=== PATIENT | female | born 1950 | race Caucasian/White ===

== ENCOUNTER 2021-01-21 05:45 | Inpatient (IN) | payer OTHER ==
[2021-01-16 11:41] LABS: Absolute Lymphocytes (CBC) 2.6 K/uL (0.7-4.9); Hematocrit 47.1 % (36.0-45.0); Lymphocytes % 32.4 % (15.3-44.8); MPV 8.2 fL (7.6-11.3); RBC Red Blood Cell Count 5.07 M/uL (3.86-4.86)
--- NOTE | 2021-01-16 11:54 | RAD REPORT ---
EXAM DESCRIPTION: Mariela Sy (2 Views)01/16/2021 11:27 am CLINICAL HISTORY: Preop for knee replacement surgery COMPARISON: 2011 FINDINGS: Right apical pleural thickening unchanged Bilateral calcified granuloma is unchanged. Lungs appear clear of acute infiltrate. Lungs are mildly to moderately hyperaerated. Heart is normal size IMPRESSION: No acute abnormalities displayed
[2021-01-16 15:20] LABS: Protime INR 0.96
[2021-01-21] MEDS ORDERED: Ringers Lactate 1,000 ML IV ONE ×2 (06:20→08:36)
[2021-01-21] MEDS ORDERED: CEFAZOLIN/SWI 1gm 1 GM/10 ML SYR ONE (06:20)
[2021-01-21] MEDS ORDERED: dexAMETHasone 10 MG/ML VIAL ONE ×2 (06:42→07:52)
[2021-01-21] MEDS ORDERED: LIDOCAINE 2% MPF 5 ML VIAL ONE ×2 (06:42→07:52)
[2021-01-21] MEDS ORDERED: NS 0.9% VIAL 20 ML ONE (06:42)
[2021-01-21] MEDS ORDERED: FENTANYL CITR 100 MCG/2 ML ONE (06:43)
[2021-01-21] MEDS ORDERED: MIDAZOLAM HCL 2 MG/2 ML INJ ONE (06:43)
[2021-01-21] MEDS ORDERED: KETOROLAC 30 MG/ML INJ ONE (07:52)
[2021-01-21] MEDS ORDERED: propofoL 200 MG/20 ML VIAL IV ONE (07:52)
[2021-01-21] MEDS ORDERED: ROCURONIUM 50 MG/5 ML VIAL IV ONE (07:53)
[2021-01-21] MEDS ORDERED: ONDANSETRON 4 MG/2 ML VIAL ONE (07:53)
[2021-01-21] MEDS ORDERED: KETAMINE HCL 500 MG/5 ML VIAL ONE (07:53)
[2021-01-21] MEDS ORDERED: TRANEXAMIC ACID 1,000 MG in NA CHLORIDE 0.9% 50 ML IV SCH (08:00)
[2021-01-21] MEDS ORDERED: ALBUTEROL INHALER 60 PUFF/8 GM IH ONE (10:26)
--- NOTE | 2021-01-21 11:10 | P.BOP ---
Preoperative diagnosis: left knee osteoarthritis Postoperative diagnosis: same Primary procedure: left total knee arthroplasty [employer]: NONE,NONE Estimated blood loss: 20 cc Specimen: left knee bone remnants Findings: see dictation Anesthesia: General Complications: None Drain(s): Urinary catheter Implants: Biomet Faye Persona, 6 STD CR femur, C tibia, 10 mm CR poly, 32 patella Fluids & blood products: per anesthesia record; TT: 109 mins @ 300 mmHg Transferred to: Recovery Room Condition: Good
[2021-01-21] MEDS ORDERED: MORPHINE 2 MG/ML SYR IV PRN (11:41)
[2021-01-21] MEDS ORDERED: TRAMADOL HCL 50 MG TAB PO PRN (11:44)
--- NOTE | 2021-01-21 12:36 | RAD REPORT ---
EXAM DESCRIPTION: RAD - Knee Left 2 View - 01/21/2021 11:37 am CLINICAL HISTORY: Knee surgery FINDINGS: Left knee arthroplasty. The prosthesis is in good position. No fracture or dislocation. No abnormality is displayed
[2021-01-21] MEDS: HYDROCODONE/APAP 7.5/325 MG TAB PO PRN (15:01)
--- OUTSIDE RECORDS SUMMARY | 2021-01-21 15:09 | XMS REPORT | Continuity of Care Document ---
:1950 Author Organization [facility] t Address [address] [place] [address] Care Team Providers Name Role Phone Unavailable Unavailable Unavailable Problems This patient has no known problems. Allergies, Adverse Reactions, Alerts This patient has no known allergies or adverse reactions. Medications Ordered Filled Start Stop Current Ordering Indication Dosage Frequency Signature Comments Components Source Medication Medication Date Date Medication? Clinician (SIG) Name Name Risperidone Risperidone Yes Mario not [facility] atorvastati atorvastati Yes Mario not [facility] Donepezil Donepezil Yes Mario not [facility] Vitamin B6 Vitamin B6 Yes Mario not [facility] Fluoxetine Fluoxetine Yes Mario not [facility] Gabapentin Gabapentin Yes Mario not [facility] Aspir-81 Aspir-81 Yes Mario not [facility] Mirtazapine Mirtazapine Yes Mario not [facility] Propranolol Propranolol Yes Mario not [facility] Amphetamine Amphetamine Yes Mario not [facility] Procedures This patient has no known procedures. Encounters Start End Encounter Admission Attending Care Care Encounter Source Date/Time Date/Time Type Type Clinicians Facility Department ID 2021-01-14 2021-01-14 Outpatient [facility] [id number] [facility] 2021-01-13 2021-01-13 Outpatient [facility] [id number] [facility] 2021-01-09 2021-01-09 Out[facility] [id number] [facility] 2020-12-19 2020-12-19 Outpatient [facility] [id number] [facility] 2020-12-19 2020-12-19 Outpatient [facility] [id number] [facility] 2020-11-26 2020-11-26 Outpatient [facility] [id number] [facility] 2020-11-26 2020-11-26 Out[facility] [id number] [facility] 2020-11-07 2020-11-07 Out[facility] [id number] [facility] 2020-10-14 2020-10-14 Outpatient [facility] [id number] [facility] 2020-08-14 2020-08-14 Out[facility] [id number] [facility] 2020-07-31 2020-07-31 Out[facility] [id number] [facility] 2020-07-24 2020-07-24 Out[facility] [id number] [facility] 2020-07-11 2020-07-11 Outpatient Elzbieta Rico [id number] [facility] 2020-06-24 2020-06-24 Outpatient Elzbieta Rico [id number] [facility] 15[facility]00 15:38:00 [facility] 2020-06-16 2020-06-16 Outpatient Elzbieta Rico [id number] [facility] 08:39[facility]00 08:39:00 [facility] 2020-06-10 2020-06-10 Outpatient Elzbieta Rico [id number] [facility] 13:[facility]00 13:00:00 [facility] Results This patient has no known results.
[2021-01-21 16:46] VITALS: BMI 28.3
[2021-01-21] MEDS: CEFAZOLIN/SWI 1gm 1 GM/10 ML SYR IV SCH (16:55)
--- NOTE | 2021-01-21 19:15 | P.OP ---
Preoperative diagnosis: left knee osteoarthritis Postoperative diagnosis: same Primary procedure: left total knee arthroplasty Anesthesia: general Estimated blood loss: 20 cc Specimen: left knee bone remnants Findings: see dictation Operative Technique: Indication For Procedure: Ms. Cowart is a 70-year-old female who presented to my clinic with signs, symptoms, and x-ray finding consistent with severe degenerative osteoarthritis. The patient failed conservative treatment measures including corticosteroid injection, viscosupplementation injections, oral anti-inflammatories, and a guided home exercise program. I discussed with the patient at length risks, benefits associated with operative and nonoperative treatment, and she expressed understanding and elected to proceed with operative treatment. Description Of Procedure: After informed consent was obtained, the patient was identified in the preoperative holding area. The left lower extremity was marked. The patient underwent an adductor canal block performed by Anesthesia in the recovery room and then was transferred to the operating room. She was transferred to the operating table in supine fashion and placed under general LMA anesthesia. The left lower extremity was then prepped and draped in usual sterile fashion. A time-out was initiated. Correct patient and procedure were confirmed and identified. The patient did receive her preoperative prophylactic antibiotics. The left lower extremity was exsanguinated and the tourniquet inflated to 300 mmHg. Approximately a 15 cm longitudinal incision was made over the anterior aspect of the knee. Dissection was then taken down to the extensor mechanism where a median parapatellar arthrotomy was performed. The patella was everted. Lateral release was performed. Osteophytes were then removed off the patella. Fat pad was removed and the knee was placed in flexion. The medial meniscus, lateral meniscus, and ACL were removed. The fat pad and synovium were removed just proximal to the distal femur and cutting block which had been prepared preoperatively using MRI imaging was then placed over the femur and pins were placed. The distal femoral cutting block was then placed over the pins and distal femur was cut. Bony remnants were removed. Next, a chamfer cutting block was placed over the distal femur where prior pin in place. The setting was locked into position. Anterior-posterior cuts were made as well as the anterior-posterior chamfer cuts. Yeyo wings had been used to ensure proper depth to cuts prior to the cuts being made. Bony remnants were removed. Remaining medial and lateral meniscus were removed and the knee was placed in hyperflexion. Soft tissue was then elevated off the proximal medial aspect of the proximal tibia. The tibial cutting block was then placed into position over the proximal tibia and an alignment génesis was used to ensure proper alignment. Pins were placed. The cutting jig was then placed over the prior plate pins and the proximal tibial was cut. The bony fragments were then removed and felt to be a pretty even and stable cut. A 10 mm spacer was then placed to ensure prope r depth of the cut. It was noted to be a little tight, 2 mm of extra bone set of the proximal tibia. The trial implant including a size 6 CR femur, size C tibial tray, 10 mm poly was then placed. There was good overall stability to the knee and good range of motion with full extension and flexion. Those implants were selected. Next, attention was taken to preparing the patella. A size 32 patella was selected. A patella planer was then used to get to subchondral bone. The patella was drilled. A size 32 patella implant was placed. The knee was place in a range of motion. There was good overall stability to the patella. Tibial tray was marked, and the femoral holes were drilled. A trial femoral implant was removed. A tibial tray was then applied and placed in a proper position, and the tibia was prepared. The knee was then irrigated thoroughly with normal saline using a pulse lavage. A 30 cc of 0.5% Marcaine with epinephrine was then injected in the synovium capsule and pe riosteum. The cement was prepared on the back table. A size C tibial tray was first placed, followed with excess cement removed using [place] elevators, followed by placement of the size 6 CR femur. Again excess cement was removed using a [place] elevator and a 10 mm trial poly was placed. There were good motion and good stability noted. The cement was placed in the underside of the patella and the patella implant was put into position. The knee was held in hyperextension until the cement hardened. The trial poly was then removed and a 10 mm CR E poly was placed, locked in position. The knee was then again irrigated with normal saline. Tourniquet was let down. Hemostasis was achieved using Bovie cautery. The extensor mechanism was closed interrupted running #1 Vicryl. The deep fascia was then approximated using a 0 Vicryl. Subcu tissue was approximated using a 2-0 Vicryl. The skin was approximated using roc. Sterile dressings were placed. The patient was awakened, transferred to PACU in stable condition. Postoperative Plan: She will be weightbearing as tolerated. Physical Therapy will be consulted to aid with mobilization, and she will be admitted to the floor for pain management and medical monitoring. Complications: None Drain(s): Urinary catheter Implants: Biomet Faye Persona Size 6 CR femur, C tibia, 10 mm CR poly, 32 patella Fluids & blood products: per anesthesia record Transferred to: Recovery Room Condition: Good
[2021-01-21] MEDS ORDERED: ATORVASTATIN 20 MG TAB PO SCH (21:00)
[2021-01-21] MEDS: DEXTROAMPHETAMINE PO SCH (21:00)
[2021-01-21] MEDS: AMPHETAMINE PO SCH (21:00)
[2021-01-21] MEDS ORDERED: GABAPENTIN 300 MG CAP PO SCH (21:00)
[2021-01-21] MEDS ORDERED: DONEPEZIL HCL 5 MG TAB PO SCH (21:00)
[2021-01-21] MEDS: RISPERIDONE 0.25 MG TABLET PO SCH (21:34)
[2021-01-21] MEDS: PROPRANOLOL HCL 10 MG TAB PO SCH (21:34)
[2021-01-21] MEDS ORDERED: TEMAZEPAM 15 MG CAP PO PRN (21:42)
[2021-01-21 23:13] VITALS: O2SAT 94
[2021-01-22] MEDS: CEFAZOLIN/SWI 1gm 1 GM/10 ML SYR IV SCH ×2 (01:21→08:55)
[2021-01-22] MEDS ORDERED: ENOXAPARIN 30 MG/0.3 ML SQ SCH (06:00)
[2021-01-22] MEDS: RISPERIDONE 0.25 MG TABLET PO SCH (08:54)
[2021-01-22] MEDS: HYDROCODONE/APAP 7.5/325 MG TAB PO PRN (08:54)
[2021-01-22] MEDS: PROPRANOLOL HCL 10 MG TAB PO SCH (08:55)
[2021-01-22] MEDS: AMPHETAMINE PO SCH (08:55)
[2021-01-22] MEDS: DEXTROAMPHETAMINE PO SCH (08:55)
[2021-01-22] MEDS ORDERED: PARoxetine HCL 10 MG TAB PO SCH (09:00)
[2021-01-22] MEDS ORDERED: PANTOPRAZOLE 40MG TABLET PO SCH (09:00)
[2021-01-22] MEDS ORDERED: HOME MED 1 EA UNK (Omeprazole [Omeprazole] 20 MG Capsule.Dr) PO SCH (09:00)
[2021-01-22] MEDS ORDERED: CELECOXIB 100 MG CAPSULE PO SCH (09:00)
[2021-01-22] MEDS ORDERED: GABAPENTIN 300 MG CAP PO SCH (09:00)
[2021-01-22] MEDS ORDERED: CETIRIZINE HCL 5 MG TABLET PO SCH (09:00)
--- NOTE | 2021-01-22 09:37 | P.DS ---
Admission Date: 01/21/21 Discharge Date: 01/22/21 Disposition: DC HOME/HOME HEALTH CARE Discharge Condition: GOOD Reason for Admission: left knee osteoarthritis s/p left total knee arthroplasty Consultations: None Procedures: left total knee arthroplasty 01/21/21 Brief History of Present Illness: Paula underwent left TKA on 01/21/21 without complication and was admitted to the floor in stable condition. Hospital Course: Admitted to the floor postoperatively without complication with stable vital signs. She was placed on lovenox for DVT prophylaxis and physical therapy was consulted to aid with mobilization. She mobilized well, pain controlled and discharged on 01/22/21 in stable condition. She will begin Xarelto tomorrow for DVT prophylaxis at home and followup in 2 weeks for wound check and reevaluation. Vital Signs/Physical Exam: Temp Pulse Resp BP Pulse Ox 96.9 F 95 H 18 101/62 96 01/22/21 04:00 01/22/21 04:00 01/22/21 04:00 01/22/21 04:00 01/22/21 04:00 Laboratory Data at Discharge: WBC 7.90 K/uL (4.3-10.9) 01/16/21 11:15 Hgb 14.2 g/dL (12.0-15.0) 01/21/21 12:02 Hct 43.0 % (36.0-45.0) 01/21/21 12:02 Plt Count 260 K/uL (152-406) 01/16/21 11:15 PT 11.0 SECONDS (9.5-12.5) 01/16/21 11:13 INR 0.96 01/16/21 11:13 APTT 28.9 SECONDS (24.3-36.9) 01/16/21 11:15 Sodium 138 mmol/L (136-145) 01/16/21 11:13 Potassium 5.0 mmol/L (3.5-5.1) 01/16/21 11:13 BUN 10 mg/dL (7-18) 01/16/21 11:13 Creatinine 0.82 mg/dL (0.55-1.3) 01/16/21 11:13 Glucose 103 mg/dL (74-106) 01/16/21 11:13 Home Medications: Atorvastatin Calcium 20 mg PO BEDTIME 01/16/21 Cetirizine HCl [Zyrtec*] 5 mg PO DAILY 01/16/21 Dextroamphetamine/Amphetamine [Adderall 20 mg Tablet] 20 mg PO BID 01/16/21 Donepezil HCl 10 mg PO BEDTIME 01/16/21 Gabapentin 300 mg PO BID 01/16/21 Gabapentin 900 mg PO BEDTIME 01/16/21 Methocarbamol [Robaxin-750] 750 mg PO Q6H PRN 01/16/21 Omeprazole 20 mg PO DAILY 01/16/21 Propranolol [Inderal*] 10 mg PO BID 01/16/21 Risperidone [Risperdal] 0.5 mg PO BID 01/16/21 Hydrocodone 7.5/APAP 325 [[place] 7.5/325 mg*] 1 tab PO SEECOM PRN 01/21/21 Paroxetine HCl [Paxil] 0.5 tab PO BID 01/21/21 Rivaroxaban [Xarelto*] 1 tab PO DAILY 01/21/21 Temazepam 1 tab PO DAILY PRN 01/21/21 Physician Discharge Instructions: Begin Xarelto tomorrow, Tuesday (01/23/21) in the morning and take once daily. May be WBAT. Work with HHPT. Qamar may removed in 2 weeks on 02/04/21 and steri strips may be placed Diet: Regular Activity: Weight bearing as tolerated Followup: Mario Alejandro MD [ACTIVE - CAN ADMIT] - 1-2 Weeks
[2021-01-22 10:03] VITALS: BP 126/75; TEMP 98.2
== END 2021-01-22 12:04 | disposition home health service (06) | DRG 470 ==
LOC: OR 05:45 → 2ND 11:41
PROVIDERS: ADMIT Orthopaedic Surgery Sports Medicine; ATTEND Orthopaedic Surgery Sports Medicine
PROC: 0SRD0J9 Replacement of Left Knee Joint with Synthetic Substitute, Cemented, Open Approach (ICD-10-PCS; principal; 2021-01-21 07:30)
DX: M17.12 Unilateral primary osteoarthritis, left knee (principal); Z79.899 Other long term (current) drug therapy; Z20.822 Contact with and (suspected) exposure to COVID-19
CPT/HCPCS: 36415; 71046; 80048; 85014; 85018; 85025; 85610; 85730; 88304; 88311; 94010; 97110; 97116; 97139; 97161; 97530; J0690; J1100; J1650; J2250; J2405; J2704; J3010; J7120; U0002

== ENCOUNTER 2023-01-13 14:04 | Emergency (ER) | payer OTHER ==
--- OUTSIDE RECORDS SUMMARY | 2023-01-13 14:10 | XMS REPORT | Continuity of Care Document ---
:1950 Author Organization [facility] t Address [address] [facility] [place] [place] [address] Care Team Providers Name Role Phone Jose Jefferson QUIGLEY Primary Care Physician MARIO LOJA Attending Clinician Unavailable Mario Loja MD Attending Clinician Only, Adc Test Attending Clinician Unavailable Pob, Adc Lab Main Attending Clinician Unavailable Doctor Unassigned, Chal[place] Attending Clinician Unavailable Nurse, Adc Pob Immunization Attending Clinician Unavailable Simeon Moya DO Attending Clinician SIMEON MOYA Attending Clinician Unavailable Edith Marino PT Attending Clinician Unavailable Thuan Barcenas MD Attending Clinician Cathy Comer PTA Attending Clinician Unavailable Rodrigo Comer PTA Attending Clinician Unavailable THUAN BARCENAS Attending Clinician Unavailable Katy Marie PT Attending Clinician Unavailable MARIO LOJA Admitting Clinician Unavailable Mario Loja MD Admitting Clinician Payers Payer Name Policy Type Policy Number Effective Date Ex[facility] Date [id number] HE[facility]CARE 00:00:00 [facility] Care 1 [id number] 2020 Common Medicare 00:00:00 [facility] MEDICARE NOVITAS MB [id number] [facility] MEDICARE NOVITAS MB [id number] [facility] MEDICARE NOVITAS MB [id number] [facility] MEDICARE NOVITAS MB [id number] [facility] Problems Condition Condition Condition Status Onset Resolution Last Treating Co mments Source Name Details Category Date Date Treatment Clinician Date Seizure Seizure Disease Active 2015-10 Univers 10-31 ity of 00:00: [address] [id number] Status Problem Active Commo n 105 post total [place] left knee - [facility] History of Aftercare Problem Active Co mmon musculoske following Spi rit letal joint - [facility] operation [facility] [id number] Arthritis Problem Active Co mmon [id number] of left [place] knee - [facility] [id number] Presence Problem Active Com tue of left [facility] artificial - [facility] knee joint [facility] [id number] Primary Problem Active Comm on osteoarthr [place] itis of - [facility] right knee [facility] [id number] Primary Problem Active Comm on osteoarthr [place] itis of - [facility] left knee [facility] [id number] Primary Problem Active Comm on osteoarthr [place] itis of - [facility] right [facility] Allergies, Adverse Reactions, Alerts Allergy Allergy Status Severity Reaction(s) Onset Inactive Treating Comm ents Source Name Type Date Date Clinician IODINE DRUG Active Swelling 2008-10 Univers INGREDI 11-01 ity of 00:00: [place] [address] Medical [place] Iodine Propensi Active Swelling 2008-10 Univer s ty to 11-01 ity of adverse 00:00: [place] reaction Medical s Branch Social History Social Habit Start Date Stop Date Quantity Comments Source History of Current Smoker Common Spi rit - Tobacco Use [facility] Sex Assigned At Common Sp pawel - [facility] Exposure to 2022-07-16 2022-07-26 Not sure University of SARS-CoV-2 00:00:00 16:50:00 [place] Medical (event) Branch Tobacco use and 2022-07-26 2022-07-26 Smokeless tobacco Un iversity of exposure 00:00:00 00:00:00 non-user [facility] Smoking Status Start Date Stop Date Source Current Smoker 2022-01-28 00:00:00 Common Sp[facility] t - [facility] Ce nter Tobacco smoking consumption [facility] [place] [facility] Branch Medications Ordered Filled Start Stop Current Ordering Indication Dosage Frequency Signature Comments Components Source Medication Medication Date Date Medication? Clinician (SIG) Name Name neomycin-po 2021- No PRN, Univmax rs lymyxin-dex 07-28 Starting ity of amethasone 17:32: 17:34 on Tuea s (MAXITROL) 00 :36 07/28/22 at Med ical 3.5 1232, Branch mg/g-10,000 Until Tue unit/g-0.1 07/28/22 at % 1234, ophthalmic Routine, ointment Intra-op dexamethaso 2021- No PRN, Nani rs ne 07-28 Starting ity of (DECADRON 17:28: 17:34 on Tue PHOSPHATE) 00 :36 07/28/22 at Med ical injection 1228, Branch Until Tue07/28/22 at 1234, Routine, Intra-op ceFAZolin 2021- No PRN, Univers (ANCEF) 07-28 Starting ity of injection 17:28: 17:34 on Tue 00 :36 07/28/22 at Medical 1228, Branch Until Tue07/28/22 at 1234, GREGG, Intra-op carbachoL 2021- No PRN, Univers (MIOSTAT) 07-28 Starting ity o f 0.01 % 17:28: 17:34 on Tue intraocular 00 :36 07/28/22 at Me dical injection 1228, Branch Until Tue07/28/22 at 1234, Routine, Intra-op chondroitin 2021- No PRN, Unive rs sulf-sod 07-28 Starting ity of hyaluronate 17:18: 17:34 on Tue as (DUOVISC 00 :36 07/28/22 at Medic al VISCO 1218, Branch ELASTIC) Until Tue intraocular 07/28/22 at injection 1234, Routine, Intra-op EPINEPHrine 2021- No PRN, Unive rs 1:1,000 (1 07-28 Starting ity of mg/mL) 17:17: 17:34 on Tue (ADRENALIN) 00 :36 07/28/22 at N[place] dical injection 1217, Branch Until Tue07/28/22 at 1234, Routine, Intra-op balanced 2021- No PRN, Univers salt irrig 07-28 Starting ity of soln comb1 17:17: 17:34 on Tue [place] (BSS PLUS) 00 :36 07/28/22 at Med ical ophthalmic 1217, Branch solution Until Tue 500 mL bag 07/28/22 at 1234, Routine, Intra-op water for 2021- No PRN, Univers irrigation 07-28 Starting ity of irrigation 17:10: 17:34 on Tue [place] solution 00 :36 07/28/22 at Medic al 1210, Branch Until Tue07/28/22 at 1234, Routine, Intra-op Hyaluronida 2021- No PRN, Unive rs se, Human 07-28 Starting ity o f Recomb. 17:08: 17:34 on Tue (HYLENEX) 00 :36 07/28/22 at [facility] stan injection 1208, Branch Until Tue07/28/22 at 1234, Routine, Intra-op eye block 2021- No PRN, Univers syringe 11 07-28 Starting ity of mL 17:08: 17:34 on Tue 00 :36 07/28/22 at Medical 1208, Branch Until Tue07/28/22 at 1234, Intra-op sodium 2021- No PRN, Univers chloride 07-28 Starting ity of (NS) 17:00: 17:34 on Tue [place] injection 00 :36 07/28/22 at Medi stan 1200, Branch Until Tue07/28/22 at 1234, Routine, Intra-op cyclopent 2021- No .5mL 0.5 mL, Univ ers 1%-tropic 07-28 Right Eye, ity of 1%-phenyl 15:45: 16:03 ONCE, 1 [place] 2.5%-ketor 00 :00 dose, On Medic al 0.5% Tue Branch (MYDRIATIC 07/28/22 at #5) 1045, ophthalmic Routine, solution DSU Pre-op syringe 0.5 mL lactated 2021- No 1000mL at 42 [facility] [place] [facility] rs ringers IV 07-28 mL/hr, ity of infusion 15:45: 16:03 1,000 mL, [place] 1,000 mL 00 :00 IV Medical Infusion, Branch ONCE, 1 dose, On Tue07/28/22 at 1045, Routine, DSU Pre-op cyclopent 2021- No .5mL 0.5 mL, Univ ers 1%-tropic 07-28 Right Eye, ity of 1%-phenyl 15:45: 16:03 ONCE, 1 [place] 2.5%-ketor 00 :00 dose, On Medic al 0.5% Tue Branch (MYDRIATIC 07/28/22 at #5) 1045, ophthalmic Routine, solution DSU Pre-op syringe 0.5 mL lactated 2021- No 1000mL at 42 [facility] [place] [facility] rs ringers IV 07-28 mL/hr, ity of infusion 15:45: 16:03 1,000 mL, [place] 1,000 mL 00 :00 IV Medical Infusion, Branch ONCE, 1 dose, On Tue07/28/22 at 1045, Routine, DSU Pre-op GABAPENTIN, Yes Univer s BULK, MISC 07-28 ity of 13:00: [address] Branch QUETIAPINE Yes Take by [facility] [place] [facility] ers FUMARATE 07-28 mouth. ity of (QUETIAPINE 13:00: [place] ORAL) Medical Branch methocarbam Yes 750mg Take 750 U nivers ol 07-28 mg by ity of (ROBAXIN) 13:00: mouth 4 [place] 750 mg 45 (four) Medical tablet times Branch daily. FLUoxetine Yes 40mg Take 40 mg U nivers (PROZAC) 40 07-28 by mouth ity of mg capsule 13:00: daily. [address] omeprazole Yes 40mg Take 40 mg U nivers (PRILOSEC) 07-28 by mouth ity o f 40 mg 13:00: daily. [facility] 45 Medical Branch GABAPENTIN, 0 Yes Univer s BULK, MISC 07-28 ity of 13:00: [place] [address] Medical Branch QUETIAPINE 0 Yes Take by Univ ers FUMARATE 07-28 mouth. ity of (QUETIAPINE 13:00: [place] ORAL) 45 Medical Branch methocarbam 0 Yes 750mg Take 750 U nivers ol 9-28 mg by ity of (ROBAXIN) 13:00: mouth 4 [place] 750 mg 45 (four) Medical tablet times Branch daily. FLUoxetine 0 Yes 40mg Take 40 mg U nivers (PROZAC) 40 - by mouth ity of mg capsule 13:00: daily. [place] [address] Medical Branch omeprazole 0 Yes 40mg Take 40 mg U nivers (PRILOSEC) -28 by mouth ity o f 40 mg 13:00: daily. [facility] 45 Medical Branch donepeziL 0 Yes 10mg Take 10 mg Un patricia 10 mg 9-16 by mouth ity of tablet 00:00: in the 00 morning. Medical Branch ergocalcife 0 Yes 1{capsu Take 1 U nivers rol, 9-16 le} capsule by ity of vitamin d2, 00:00: mouth [place] 1,250 mcg 00 weekly. On Medi stan (Tuesday Branch unit) capsule donepeziL 0 Yes 10mg Take 10 mg Un patricia 10 mg 9-16 by mouth ity of tablet 00:00: in the 00 morning. Medical Branch ergocalcife 0 Yes 1{capsu Take 1 U nivers rol, 9-16 le} capsule by ity of vitamin d2, 00:00: mouth [place] 1,250 mcg 00 weekly. On Medi stan ([address] Tuesday Branch unit) capsule traZODone 0 Yes 1{tbl} Take 1 Univ ers 100 mg 9-12 tablet by ity of tablet 00:00: mouth in [place] 00 the Medical morning. Branch traZODone 2021-0 Yes 1{tbl} Take 1 Univ ers 100 mg 9-12 tablet by ity of tablet 00:00: mouth in [place] 00 the Medical morning. Branch dextroamphe 0 Yes 1{tbl} Take 1 Un patricia tamine-amph 9-07 tablet by ity of etamine 20 00:00: mouth in [place] mg tablet 00 the Medical morning Branch and 1 tablet in the evening. risperiDONE 2-0 Yes .5mg Take 0.5 Un patricia 0.5 mg 9-07 mg by ity of tablet 00:00: mouth in [place] 00 the Medical morning Branch and 0.5 mg in the evening. dextroamphe 2-0 Yes 1{tbl} Take 1 Un patricia tamine-amph 9-07 tablet by ity of etamine 20 00:00: mouth in [place] mg tablet 00 the Medical morning Branch and 1 tablet in the evening. risperiDONE 2-0 Yes .5mg Take 0.5 Un patricia 0.5 mg 9-07 mg by ity of tablet 00:00: mouth in [place] 00 the Medical morning Branch and 0.5 mg in the evening. PARoxetine 2-0 Yes 30mg Take 30 mg U nivers 30 mg 8-17 by mouth ity of tablet 00:00: in the [place] morning. Medical Branch PARoxetine 2-0 Yes 30mg Take 30 mg U nivers 30 mg 8-17 by mouth ity of tablet 00:00: in the [place] 00 morning. Medical Branch atorvastati 2021-0 Yes 20mg Take 20 mg Univers n 20 mg 8-12 by mouth ity of tablet 00:00: in the [place] 00 morning. Medical Branch atorvastati 2-0 Yes 20mg Take 20 mg Univers n 20 mg 8-12 by mouth ity of tablet 00:00: in the [place] 00 morning. Medical Branch propranoloL 2-0 Yes 40mg Take 40 mg Univers 40 mg 8-11 by mouth ity of tablet 00:00: in the [place] 00 morning. Medical Branch propranoloL 2022-0 Yes 40mg Take 40 mg Univers 40 mg 8-11 by mouth ity of tablet 00:00: in the [place] 00 morning. Medical Branch Bupivicaine Bupivicaine 2020-0 No Common [place] 9-16 Spirit 00:00: - [facility] 00 [facility] Kenalog Kenalog 2020-0 No 40mg Common (Triamcinol (Triamcinol 9-16 S pirit one) one) 00:00: - [facility] Kenalog Kenalog No 40mg Common (Triamcinol (Triamcinol 2-19 S pirit one) one) 00:00: - [facility]I 00 [facility] Bupivicaine Bupivicaine 0 No Common [place] 2-19 Spirit 00:00: - CHI 00 [facility] Kenalog Kenalog 2019-10 No 40mg Common (Triamcinol (Triamcinol 0-15 S pirit one) one) 00:00: - CHI 00 [facility] Bupivicaine Bupivicaine 2019- No 5mg Common [place] 0-15 Spirit 00:00: - [facility]I 00 [facility] Orthovisc Orthovisc 2019-1 No 15mg Com mon 0 Spirit 00:00: - [facility] Orthovisc Orthovisc 2019-1 No 15mg Com mon 0 Spirit 00:00: - [facility] Orthovisc Orthovisc 2020-0 No 15mg Com mon 07-24 Spirit 00:00: - [facility] Orthovisc Orthovisc 2020-0 No 15mg Com mon 07-24 Spirit 00:00: - [facility]I 00 [facility] Bupivicaine Bupivicaine 2019-0 No 5mg Common [place] 9- Spirit 00:00: - CHI 00 [facility] Orthovisc Orthovisc 2020-0 No 15mg Com mon 07-11 Spirit 00:00: - [facility] Orthovisc Orthovisc 2020-0 No 15mg Com 07-11 Spirit 00:00: - [facility] Kenalog Kenalog 0 No 40mg Common (Triamcinol (Triamcinol 9-11 S pirit one) one) 00:00: - [facility] 00 [facility] proMETHazin 2015-10 Yes 25mg Take 1 Univ ers e 1-04 tablet by ity of (PHENERGAN) 00:00: mouth [place] 25 mg 00 every 6 Medical tablet (six) Branch hours as needed for N/V unresponsi ve to Ondansetro n. lisinopril 2015-10 Yes 2.5mg Take 1 Univ ers (PRINIVIL,Z 1-04 tablet by ity of ESTRIL) 2.5 00:00: mouth [place] mg tablet 00 daily. Medical Branch proMETHazin 2015-10 Yes 25mg Take 1 Univ ers e 1-04 tablet by ity of (PHENERGAN) 00:00: mouth [place] 25 mg 00 every 6 Medical tablet (six) Branch hours as needed for N/V unresponsi ve to Ondansetro n. lisinopril 2015-10 Yes 2.5mg Take 1 Univ ers (PRINIVIL,Z 1-04 tablet by ity of ESTRIL) 2.5 00:00: mouth [place] mg tablet 00 daily. Medical Branch proMETHazin 2015-10 Yes 25mg Take 1 Univ ers e 1-04 tablet by ity of (PHENERGAN) 00:00: mouth [place] 25 mg 00 every 6 Medical tablet (six) Branch hours as needed for N/V unresponsi ve to Ondansetro n. lisinopril 2015-10 Yes 2.5mg Take 1 Univ ers (PRINIVIL,Z 1-04 tablet by ity of ESTRIL) 2.5 00:00: mouth [place] mg tablet 00 daily. Medical Branch proMETHazin 2015-10 Yes 25mg Take 1 Univ ers e 1-04 tablet by ity of (PHENERGAN) 00:00: mouth [place] 25 mg 00 every 6 Medical tablet (six) Branch hours as needed for N/V unresponsi ve to Ondansetro n. lisinopril 2015-10 Yes 2.5mg Take 1 Univ ers (PRINIVIL,Z 1-04 tablet by ity of ESTRIL) 2.5 00:00: mouth [place] mg tablet 00 daily. Medical Branch proMETHazin 2015-10 Yes 25mg Take 1 Univ ers e 1-04 tablet by ity of (PHENERGAN) 00:00: mouth [place] 25 mg 00 every 6 Medical tablet (six) Branch hours as needed for N/V unresponsi ve to Ondansetro n. lisinopril 2015-10 Yes 2.5mg Take 1 Univ ers (PRINIVIL,Z 1-04 tablet by ity of ESTRIL) 2.5 00:00: mouth [place] mg tablet 00 daily. Medical Branch proMETHazin 2015-10 Yes 25mg Take 1 Univ ers e 1-04 tablet by ity of (PHENERGAN) 00:00: mouth [place] 25 mg 00 every 6 Medical tablet (six) Branch hours as needed for N/V unresponsi ve to Ondansetro n. lisinopril 2015-10 Yes 2.5mg Take 1 Univ ers (PRINIVIL,Z 1-04 tablet by ity of ESTRIL) 2.5 00:00: mouth [place] mg tablet 00 daily. Medical Branch proMETHazin 2015-10 Yes 25mg Take 1 Univ ers e 1-04 tablet by ity of (PHENERGAN) 00:00: mouth [place] 25 mg 00 every 6 Medical tablet (six) Branch hours as needed for N/V unresponsi ve to Ondansetro n. lisinopril 2015-10 Yes 2.5mg Take 1 Univ ers (PRINIVIL,Z 1-04 tablet by ity of ESTRIL) 2.5 00:00: mouth [place] mg tablet 00 daily. Medical Branch proMETHazin 2015-10 Yes 25mg Take 1 Univ ers e 1-04 tablet by ity of (PHENERGAN) 00:00: mouth [place] 25 mg 00 every 6 Medical tablet (six) Branch hours as needed for N/V unresponsi ve to Ondansetro n. lisinopril 2015-10 Yes 2.5mg Take 1 Univ ers (PRINIVIL,Z 1-04 tablet by ity of ESTRIL) 2.5 00:00: mouth [place] mg tablet 00 daily. Medical Branch proMETHazin 2015-10 Yes 25mg Take 1 Univ ers e 1-04 tablet by ity of (PHENERGAN) 00:00: mouth [place] 25 mg 00 every 6 Medical tablet (six) Branch hours as needed for N/V unresponsi ve to Ondansetro n. lisinopril 2015-10 Yes 2.5mg Take 1 Univ ers (PRINIVIL,Z 1-04 tablet by ity of ESTRIL) 2.5 00:00: mouth [place] mg tablet 00 daily. Medical Branch proMETHazin 2015-10 Yes 25mg Take 1 Univ ers e 1-04 tablet by ity of (PHENERGAN) 00:00: mouth [place] 25 mg 00 every 6 Medical tablet (six) Branch hours as needed for N/V unresponsi ve to Ondansetro n. lisinopril 2015-10 Yes 2.5mg Take 1 Univ ers (PRINIVIL,Z 1-04 tablet by ity of ESTRIL) 2.5 00:00: mouth [place] mg tablet 00 daily. Medical Branch proMETHazin 2015-10 Yes 25mg Take 1 Univ ers e 1-04 tablet by ity of (PHENERGAN) 00:00: mouth [place] 25 mg 00 every 6 Medical tablet (six) Branch hours as needed for N/V unresponsi ve to Ondansetro n. lisinopril 2015-10 Yes 2.5mg Take 1 Univ ers (PRINIVIL,Z 1-04 tablet by ity of ESTRIL) 2.5 00:00: mouth [place] mg tablet 00 daily. Medical Branch proMETHazin 2015-10 Yes 25mg Take 1 Univ ers e 1-04 tablet by ity of (PHENERGAN) 00:00: mouth [place] 25 mg 00 every 6 Medical tablet (six) Branch hours as needed for N/V unresponsi ve to Ondansetro n. lisinopril 2015-10 Yes 2.5mg Take 1 Univ ers (PRINIVIL,Z 1-04 tablet by ity of ESTRIL) 2.5 00:00: mouth [place] mg tablet 00 daily. Medical Branch proMETHazin 2015-10 Yes 25mg Take 1 Univ ers e 1-04 tablet by ity of (PHENERGAN) 00:00: mouth [place] 25 mg 00 every 6 Medical tablet (six) Branch hours as needed for N/V unresponsi ve to Ondansetro n. lisinopril 2015-10 Yes 2.5mg Take 1 Univ ers (PRINIVIL,Z 1-04 tablet by ity of ESTRIL) 2.5 00:00: mouth [place] mg tablet 00 daily. Medical Branch proMETHazin 2015-10 Yes 25mg Take 1 Univ ers e 1-04 tablet by ity of (PHENERGAN) 00:00: mouth [place] 25 mg 00 every 6 Medical tablet (six) Branch hours as needed for N/V unresponsi ve to Ondansetro n. lisinopril 2015-10 Yes 2.5mg Take 1 Univ ers (PRINIVIL,Z 1-04 tablet by ity of ESTRIL) 2.5 00:00: mouth [place] mg tablet 00 daily. Medical Branch proMETHazin 2015-10 Yes 25mg Take 1 Univ ers e 1-04 tablet by ity of (PHENERGAN) 00:00: mouth [place] 25 mg 00 every 6 Medical tablet (six) Branch hours as needed for N/V unresponsi ve to Ondansetro n. lisinopril 2015-10 Yes 2.5mg Take 1 Univ ers (PRINIVIL,Z 1-04 tablet by ity of ESTRIL) 2.5 00:00: mouth [place] mg tablet 00 daily. Medical Branch GABAPENTIN, 2015-10 Yes Univer s BULK, MISC 10-31 ity of 22:57: [address] Branch QUETIAPINE 2015-10 Yes Take by Univ ers FUMARATE - mouth. ity of (QUETIAPINE 22:57: [place] ORAL) Medical Branch methocarbam 2015-10 Yes 750mg Take 750 U nivers ol 1-01 mg by ity of (ROBAXIN) 22:57: mouth 4 [place] 750 mg 53 (four) Medical tablet times Branch daily. FLUoxetine 2015-10 Yes 40mg Take 40 mg U nivers (PROZAC) 40 10-31 by mouth ity of mg capsule 22:57: daily. [address] omeprazole 2015-10 Yes 40mg Take 40 mg U nivers (PRILOSEC) 10-31 by mouth ity o f 40 mg 22:57: daily. [place] [address] Medical Branch GABAPENTIN, 2015-10 Yes Univer s BULK, MISC 10-31 ity of 22:57: [address] QUETIAPINE 2015-10 Yes Take by Univ ers FUMARATE 10-31 mouth. ity of (QUETIAPINE 22:57: [place] ORAL) [address] [place] [address] methocarbam 2015-10 Yes 750mg Take 750 U nivers ol 1-01 mg by ity of (ROBAXIN) 22:57: mouth 4 [place] 750 mg 53 (four) Medical tablet times Branch daily. FLUoxetine 2015-10 Yes 40mg Take 40 mg U nivers (PROZAC) 40 10-31 by mouth ity of mg capsule 22:57: daily. [address] omeprazole 2015-10 Yes 40mg Take 40 mg U nivers (PRILOSEC) 1-01 by mouth ity o f 40 mg 22:57: daily. [place] [address] Medical Branch GABAPENTIN, 2015-10 Yes Univer s BULK, MISC 10-31 ity of 22:57: [address] QUETIAPINE 2015-10 Yes Take by Univ ers FUMARATE - mouth. ity of (QUETIAPINE 22:57: [place] ORAL) [address] [place] [address] methocarbam 2015-10 Yes 750mg Take 750 U nivers ol 1-01 mg by ity of (ROBAXIN) 22:57: mouth 4 [place] 750 mg 53 (four) Medical tablet times Branch daily. FLUoxetine 2015-10 Yes 40mg Take 40 mg U nivers (PROZAC) 40 1-01 by mouth ity of mg capsule 22:57: daily. [address] omeprazole 2015-10 Yes 40mg Take 40 mg U nivers (PRILOSEC) 1-01 by mouth ity o f 40 mg 22:57: daily. [address] Branch GABAPENTIN, 2015-10 Yes Univer s BULK, MISC 10-31 ity of 22:57: [address] QUETIAPINE 2015-10 Yes Take by [facility] [place] [facility] ers FUMARATE 1-01 mouth. ity of (QUETIAPINE 22:57: [place] ORAL) [address] [place] [address] methocarbam 2015-10 Yes 750mg Take 750 U nivers ol 1-01 mg by ity of (ROBAXIN) 22:57: mouth 4 [place] 750 mg 53 (four) Medical tablet times [place] daily. FLUoxetine 2015-10 Yes 40mg Take 40 mg U nivers (PROZAC) 40 1-01 by mouth ity of mg capsule 22:57: daily. [address] omeprazole 2015-10 Yes 40mg Take 40 mg U nivers (PRILOSEC) 1-01 by mouth ity o f 40 mg 22:57: daily. [address] GABAPENTIN, 2015-10 Yes Univer s BULK, MISC 10-31 ity of 22:57: [address] QUETIAPINE 2015-10 Yes Take by [facility] [place] [facility] ers FUMARATE 1-01 mouth. ity of (QUETIAPINE 22:57: [place] ORAL) [address] [place] [address] methocarbam 2015-10 Yes 750mg Take 750 U nivers ol 1-01 mg by ity of (ROBAXIN) 22:57: mouth 4 [place] 750 mg 53 (four) Medical tablet times Branch daily. FLUoxetine 2015-10 Yes 40mg Take 40 mg U nivers (PROZAC) 40 1-01 by mouth ity of mg capsule 22:57: daily. [address] omeprazole 2015-10 Yes 40mg Take 40 mg U nivers (PRILOSEC) 1-01 by mouth ity o f 40 mg 22:57: daily. [place] [address] Medical Branch GABAPENTIN, 2015-10 Yes Univer s BULK, MISC 10-31 ity of 22:57: [address] Branch QUETIAPINE 2015-10 Yes Take by Univ ers FUMARATE - mouth. ity of (QUETIAPINE 22:57: [place] ORAL) [address] [place] [address] methocarbam 2015-10 Yes 750mg Take 750 U nivers ol 1-01 mg by ity of (ROBAXIN) 22:57: mouth 4 [place] 750 mg 53 (four) Medical tablet times Branch daily. FLUoxetine 2015-10 Yes 40mg Take 40 mg U nivers (PROZAC) 40 -01 by mouth ity of mg capsule 22:57: daily. [place] [address] Medical Branch omeprazole 2015-10 Yes 40mg Take 40 mg U nivers (PRILOSEC) -01 by mouth ity o f 40 mg 22:57: daily. [place] [address] Medical Branch GABAPENTIN, 2015-10 Yes Univer s BULK, MISC 10-31 ity of 22:57: [address] QUETIAPINE 2015-10 Yes Take by Univ ers FUMARATE - mouth. ity of (QUETIAPINE 22:57: [place] ORAL) [address] [place] [address] methocarbam 2015-10 Yes 750mg Take 750 U nivers ol 1-01 mg by ity of (ROBAXIN) 22:57: mouth 4 [place] 750 mg 53 (four) Medical tablet times Branch daily. FLUoxetine 2015-10 Yes 40mg Take 40 mg U nivers (PROZAC) 40 01 by mouth ity of mg capsule 22:57: daily. [address] omeprazole 2015-10 Yes 40mg Take 40 mg U nivers (PRILOSEC) 1-01 by mouth ity o f 40 mg 22:57: daily. [place] [address] Medical Branch GABAPENTIN, 2015-10 Yes Univer s BULK, MISC 10-31 ity of 22:57: [address] Branch QUETIAPINE 2015-10 Yes Take by Univ ers FUMARATE -01 mouth. ity of (QUETIAPINE 22:57: [place] ORAL) Medical [place] methocarbam 2015-10 Yes 750mg Take 750 U nivers ol 1-01 mg by ity of (ROBAXIN) 22:57: mouth 4 [place] 750 mg 53 (four) Medical tablet times Branch daily. FLUoxetine 2015-10 Yes 40mg Take 40 mg U nivers (PROZAC) 40 - by mouth ity of mg capsule 22:57: daily. [address] omeprazole 2015-10 Yes 40mg Take 40 mg U nivers (PRILOSEC) 1-01 by mouth ity o f 40 mg 22:57: daily. [place] [address] Medical Branch GABAPENTIN, 2015-10 Yes Univer s BULK, MISC 10-31 ity of 17:57: [address] QUETIAPINE 2015-10 Yes Take by Univ ers FUMARATE 1- mouth. ity of (QUETIAPINE 17:57: [place] ORAL) [address] [place] [address] methocarbam 2015-10 Yes 750mg Take 750 U nivers ol 1-01 mg by ity of (ROBAXIN) 17:57: mouth 4 [place] 750 mg 53 (four) Medical tablet times [place] daily. FLUoxetine 2015-10 Yes 40mg Take 40 mg U nivers (PROZAC) 40 10-31 by mouth ity of mg capsule 17:57: daily. [address] omeprazole 2015-10 Yes 40mg Take 40 mg U nivers (PRILOSEC) 1 by mouth ity o f 40 mg 17:57: daily. [address] GABAPENTIN, 2015-10 Yes Univer s BULK, MISC 10-31 ity of 17:57: [address] QUETIAPINE 2015-10 Yes Take by Univ ers FUMARATE 10-31 mouth. ity of (QUETIAPINE 17:57: [place] ORAL) [address] [place] [address] methocarbam 2015-10 Yes 750mg Take 750 U nivers ol 1-01 mg by ity of (ROBAXIN) 17:57: mouth 4 [place] 750 mg 53 (four) Medical tablet times [place] daily. FLUoxetine 2015-10 Yes 40mg Take 40 mg U nivers (PROZAC) 40 1-01 by mouth ity of mg capsule 17:57: daily. [address] omeprazole 2015-10 Yes 40mg Take 40 mg U nivers (PRILOSEC) 1-01 by mouth ity o f 40 mg 17:57: daily. [address] Branch GABAPENTIN, 2015-10 Yes Univer s BULK, MISC 10-31 ity of 17:57: [address] QUETIAPINE 2015-10 Yes Take by Univ ers FUMARATE 1-01 mouth. ity of (QUETIAPINE 17:57: [place] ORAL) Medical [place] methocarbam 2015-10 Yes 750mg Take 750 U nivers ol 1-01 mg by ity of (ROBAXIN) 17:57: mouth 4 [place] 750 mg 53 (four) Medical tablet times Branch daily. FLUoxetine 2015-10 Yes 40mg Take 40 mg U nivers (PROZAC) 40 1-01 by mouth ity of mg capsule 17:57: daily. [address] omeprazole 2015-10 Yes 40mg Take 40 mg U nivers (PRILOSEC) 1-01 by mouth ity o f 40 mg 17:57: daily. [place] [address] Medical Branch GABAPENTIN, 2015-10 Yes Univer s BULK, MISC 10-31 ity of 17:57: [address] QUETIAPINE 2015-10 Yes Take by Univ ers FUMARATE 1-01 mouth. ity of (QUETIAPINE 17:57: [place] ORAL) [address] [place] [address] methocarbam 2015-10 Yes 750mg Take 750 U nivers ol 1-01 mg by ity of (ROBAXIN) 17:57: mouth 4 [place] 750 mg 53 (four) Medical tablet times [place] daily. FLUoxetine 2015-10 Yes 40mg Take 40 mg U nivers (PROZAC) 40 1-01 by mouth ity of mg capsule 17:57: daily. [address] omeprazole 2015-10 Yes 40mg Take 40 mg U nivers (PRILOSEC) 1-01 by mouth ity o f 40 mg 17:57: daily. [address] GABAPENTIN, 2015-10 Yes Univer s BULK, MISC 10-31 ity of 17:57: [address] QUETIAPINE 2015-10 Yes Take by Univ ers FUMARATE 1-01 mouth. ity of (QUETIAPINE 17:57: [place] ORAL) [address] [place] [address] methocarbam 2015-10 Yes 750mg Take 750 U nivers ol 1-01 mg by ity of (ROBAXIN) 17:57: mouth 4 [place] 750 mg 53 (four) Medical tablet times Branch daily. FLUoxetine 2015-10 Yes 40mg Take 40 mg U nivers (PROZAC) 40 1-01 by mouth ity of mg capsule 17:57: daily. [address] omeprazole 2015-10 Yes 40mg Take 40 mg U nivers (PRILOSEC) 1-01 by mouth ity o f 40 mg 17:57: daily. [facility] 53 Medical Branch ondansetron 2015-10 Yes 8mg Take 1 Univ ers (ZOFRAN 0-30 tablet by ity of ODT) 8 mg 00:00: mouth [place] disintegrat 00 every 8 Medic al ing tablet (eight) Branch hours as needed for Nausea and Vomiting (N/V). ondansetron 2015-10 Yes 8mg Take 1 Univ ers (ZOFRAN 0-30 tablet by ity of ODT) 8 mg 00:00: mouth [place] disintegrat 00 every 8 Medic al ing tablet (eight) Branch hours as needed for Nausea and Vomiting (N/V). ondansetron 2015-10 Yes 8mg Take 1 Univ ers (ZOFRAN 0-30 tablet by ity of ODT) 8 mg 00:00: mouth [place] disintegrat 00 every 8 Medic al ing tablet (eight) Branch hours as needed for Nausea and Vomiting (N/V). ondansetron 2015-10 Yes 8mg Take 1 Univ ers (ZOFRAN 0-30 tablet by ity of ODT) 8 mg 00:00: mouth [place] disintegrat 00 every 8 Medic al ing tablet (eight) Branch hours as needed for Nausea and Vomiting (N/V). ondansetron 2015-10 Yes 8mg Take 1 Univ ers (ZOFRAN 0-30 tablet by ity of ODT) 8 mg 00:00: mouth [place] disintegrat 00 every 8 Medic al ing tablet (eight) Branch hours as needed for Nausea and Vomiting (N/V). ondansetron 2015-10 Yes 8mg Take 1 Univ ers (ZOFRAN 0-30 tablet by ity of ODT) 8 mg 00:00: mouth [place] disintegrat 00 every 8 Medic al ing tablet (eight) Branch hours as needed for Nausea and Vomiting (N/V). ondansetron 2015-10 Yes 8mg Take 1 Univ ers (ZOFRAN 0-30 tablet by ity of ODT) 8 mg 00:00: mouth [place] disintegrat 00 every 8 Medic al ing tablet (eight) Branch hours as needed for Nausea and Vomiting (N/V). ondansetron 2015-10 Yes 8mg Take 1 Univ ers (ZOFRAN 0-30 tablet by ity of ODT) 8 mg 00:00: mouth [place] disintegrat 00 every 8 Medic al ing tablet (eight) Branch hours as needed for Nausea and Vomiting (N/V). ondansetron 2015-10 Yes 8mg Take 1 Univ ers (ZOFRAN 0-30 tablet by ity of ODT) 8 mg 00:00: mouth [place] disintegrat 00 every 8 Medic al ing tablet (eight) Branch hours as needed for Nausea and Vomiting (N/V). ondansetron 2015-10 Yes 8mg Take 1 Univ ers (ZOFRAN 0-30 tablet by ity of ODT) 8 mg 00:00: mouth [place] disintegrat 00 every 8 Medic al ing tablet (eight) Branch hours as needed for Nausea and Vomiting (N/V). ondansetron 2015-10 Yes 8mg Take 1 Univ ers (ZOFRAN 0-30 tablet by ity of ODT) 8 mg 00:00: mouth [place] disintegrat 00 every 8 Medic al ing tablet (eight) Branch hours as needed for Nausea and Vomiting (N/V). ondansetron 2015-10 Yes 8mg Take 1 Univ ers (ZOFRAN 0-30 tablet by ity of ODT) 8 mg 00:00: mouth [place] disintegrat 00 every 8 Medic al ing tablet (eight) Branch hours as needed for Nausea and Vomiting (N/V). ondansetron 2015-10 Yes 8mg Take 1 Univ ers (ZOFRAN 0-30 tablet by ity of ODT) 8 mg 00:00: mouth [place] disintegrat 00 every 8 Medic al ing tablet (eight) Branch hours as needed for Nausea and Vomiting (N/V). ondansetron 2015-10 Yes 8mg Take 1 Univ ers (ZOFRAN 0-30 tablet by ity of ODT) 8 mg 00:00: mouth [place] disintegrat 00 every 8 Medic al ing tablet (eight) Branch hours as needed for Nausea and Vomiting (N/V). ondansetron 2015-10 Yes 8mg Take 1 Univ ers (ZOFRAN 0-30 tablet by ity of ODT) 8 mg 00:00: mouth [place] disintegrat 00 every 8 Medic al ing tablet (eight) Branch hours as needed for Nausea and Vomiting (N/V). CONJ 2009- Yes 1 g Univers ESTROGENS 4-15 Vaginal ity of VAG CREAM 00:00: QHS twice [place] as 0.625MG/G 00 a week x 4 Medi stan wks Branch HYDROCODONE 0 Yes 1-2 Tab Uni vers -ACETAMINOP 4-15 Oral ity of HEN 5-325 00:00: Q6HPRN [place] MG ORAL TAB 00 Medical Branch IBUPROFEN 2009-0 Yes 1 Tab Oral Un patricia 600 MG ORAL 4-15 Q6H ity of TAB 00:00: [place] 00 Medical Branch PHENERGAN 2009-0 Yes 1/2 to 1 Univ ers 25 MG ORAL 4-15 tab PO q4h ity of TAB 00:00: PRN [place] 00 nausea/vom Medical itting Branch CONJ Yes 1 g Univers ESTROGENS 4-15 Vaginal ity of VAG CREAM 00:00: QHS twice [place] as 0.625MG/G 00 a week x 4 [facility] HYDROCODONE Yes 1-2 Tab Uni vers -ACETAMINOP 4-15 Oral ity of HEN 5-325 00:00: Q6HPRN [place] MG ORAL TAB 00 Medical Branch IBUPROFEN 0 Yes 1 Tab Oral Un patricia 600 MG ORAL 4-15 Q6H ity of TAB 00:00: [place] [facility] PHENERGAN 0 Yes 1/2 to 1 Univ ers 25 MG ORAL 4-15 tab PO q4h ity of TAB 00:00: PRN [place] 00 nausea/vom Medical itting Branch CONJ Yes 1 g Univers ESTROGENS 4-15 Vaginal ity of VAG CREAM 00:00: QHS twice [place] as 0.625MG/G 00 a week x 4 [facility] HYDROCODONE Yes 1-2 Tab Uni vers -ACETAMINOP 4-15 Oral ity of HEN 5-325 00:00: Q6HPRN [place] MG ORAL TAB 00 Medical Branch IBUPROFEN 2009-0 Yes 1 Tab Oral Un patricia 600 MG ORAL 4-15 Q6H ity of TAB 00:00: [place] 00 Medical Branch PHENERGAN 2009-0 Yes 1/2 to 1 Univ ers 25 MG ORAL 4-15 tab PO q4h ity of TAB 00:00: PRN [place] 00 nausea/vom Medical itting Branch CONJ Yes 1 g Univers ESTROGENS 4-15 Vaginal ity of VAG CREAM 00:00: QHS twice [place] as 0.625MG/G 00 a week x 4 [facility] Branch HYDROCODONE 0 Yes 1-2 Tab Uni vers -ACETAMINOP 4-15 Oral ity of HEN 5-325 00:00: Q6HPRN [place] MG ORAL TAB 00 Medical Branch IBUPROFEN 2009-0 Yes 1 Tab Oral Un patricia 600 MG ORAL 4-15 Q6H ity of TAB 00:00: [place] [facility] PHENERGAN 2009-0 Yes 1/2 to 1 Univ ers 25 MG ORAL 4-15 tab PO q4h ity of TAB 00:00: PRN nausea/vom Medical itting Branch CONJ 2009-0 Yes 1 g Univers ESTROGENS 4-15 Vaginal ity of VAG CREAM 00:00: QHS twice [place] as 0.625MG/G 00 a week x 4 [facility] Branch HYDROCODONE Yes 1-2 Tab Uni vers -ACETAMINOP 4-15 Oral ity of HEN 5-325 00:00: Q6HPRN [place] MG ORAL TAB 00 Medical Branch IBUPROFEN 0 Yes 1 Tab Oral Un patricia 600 MG ORAL 4-15 Q6H ity of TAB 00:00: [place] [facility] PHENERGAN 0 Yes 1/2 to 1 Univ ers 25 MG ORAL 4-15 tab PO q4h ity of TAB 00:00: PRN 00 nausea/vom Medical itting Branch CONJ 0 Yes 1 g Univers ESTROGENS 4-15 Vaginal ity of VAG CREAM 00:00: QHS twice [place] as 0.625MG/G 00 a week x 4 [facility] Branch HYDROCODONE 0 Yes 1-2 Tab Uni vers -ACETAMINOP 4-15 Oral ity of HEN 5-325 00:00: Q6HPRN [place] MG ORAL TAB 00 Medical Branch IBUPROFEN 2009-0 Yes 1 Tab Oral Un patricia 600 MG ORAL 4-15 Q6H ity of TAB 00:00: [place] 00 Medical Branch PHENERGAN 2009-0 Yes 1/2 to 1 Univ ers 25 MG ORAL 4-15 tab PO q4h ity of TAB 00:00: PRN [place] 00 nausea/vom Medical itting Branch CONJ 0 Yes 1 g Univers ESTROGENS 4-15 Vaginal ity of VAG CREAM 00:00: QHS twice [place] as 0.625MG/G 00 a week x 4 [facility] Branch HYDROCODONE 0 Yes 1-2 Tab Uni vers -ACETAMINOP 4-15 Oral ity of HEN 5-325 00:00: Q6HPRN [place] MG ORAL TAB 00 Medical Branch IBUPROFEN 2009-0 Yes 1 Tab Oral Un patricia 600 MG ORAL 4-15 Q6H ity of TAB 00:00: [place] 00 Medical Branch PHENERGAN 2009-0 Yes 1/2 to 1 Univ ers 25 MG ORAL 4-15 tab PO q4h ity of TAB 00:00: PRN [place] 00 nausea/vom Medical itting Branch CONJ 2009-0 Yes 1 g Univers ESTROGENS 4-15 Vaginal ity of VAG CREAM 00:00: QHS twice [place] as 0.625MG/G 00 a week x 4 [facility] Branch HYDROCODONE 0 Yes 1-2 Tab Uni vers -ACETAMINOP 4-15 Oral ity of HEN 5-325 00:00: Q6HPRN [place] MG ORAL TAB 00 Medical Branch IBUPROFEN 0 Yes 1 Tab Oral Un patricia 600 MG ORAL 4-15 Q6H ity of TAB 00:00: [place] 00 Medical Branch PHENERGAN 0 Yes 1/2 to 1 Univ ers 25 MG ORAL 4-15 tab PO q4h ity of TAB 00:00: PRN [place] 00 nausea/vom Medical itting Branch CONJ 0 Yes 1 g Univers ESTROGENS 4-15 Vaginal ity of VAG CREAM 00:00: QHS twice [place] as 0.625MG/G 00 a week x 4 [facility] HYDROCODONE 0 Yes 1-2 Tab Uni vers -ACETAMINOP 4-15 Oral ity of HEN 5-325 00:00: Q6HPRN [place] MG ORAL TAB 00 Medical Branch IBUPROFEN 2009-0 Yes 1 Tab Oral Un patricia 600 MG ORAL 4-15 Q6H ity of TAB 00:00: [place] 00 Medical Branch PHENERGAN 2009-0 Yes 1/2 to 1 Univ ers 25 MG ORAL 4-15 tab PO q4h ity of TAB 00:00: PRN [place] 00 nausea/vom Medical itting Branch CONJ 2009-0 Yes 1 g Univers ESTROGENS 4-15 Vaginal ity of VAG CREAM 00:00: QHS twice [place] as 0.625MG/G 00 a week x 4 [facility] Branch HYDROCODONE 0 Yes 1-2 Tab Uni vers -ACETAMINOP 4-15 Oral ity of HEN 5-325 00:00: Q6HPRN [place] MG ORAL TAB 00 Medical Branch IBUPROFEN Yes 1 Tab Oral Un patricia 600 MG ORAL 4-15 Q6H ity of TAB 00:00: [place] [facility] PHENERGAN 2009-0 Yes 1/2 to 1 Univ ers 25 MG ORAL 4-15 tab PO q4h ity of TAB 00:00: PRN [place] nausea/vom Medical itting Branch CONJ Yes 1 g Univers ESTROGENS 4-15 Vaginal ity of VAG CREAM 00:00: QHS twice [place] as 0.625MG/G 00 a week x 4 [facility] Branch HYDROCODONE Yes 1-2 Tab Uni vers -ACETAMINOP 4-15 Oral ity of HEN 5-325 00:00: Q6HPRN [place] MG ORAL TAB Medical Branch IBUPROFEN Yes 1 Tab Oral Un patricia 600 MG ORAL 4-15 Q6H ity of TAB 00:00: [place] [facility] PHENERGAN Yes 1/2 to 1 Univ ers 25 MG ORAL 4-15 tab PO q4h ity of TAB 00:00: PRN 00 nausea/vom Medical itting Branch CONJ Yes 1 g Univers ESTROGENS 4-15 Vaginal ity of VAG CREAM 00:00: QHS twice [place] as 0.625MG/G 00 a week x 4 [facility] Branch HYDROCODONE Yes 1-2 Tab Uni vers -ACETAMINOP 4-15 Oral ity of HEN 5-325 00:00: Q6HPRN [place] MG ORAL TAB 00 Medical Branch IBUPROFEN Yes 1 Tab Oral Un patricia 600 MG ORAL 4-15 Q6H ity of TAB 00:00: [place] [facility] PHENERGAN 0 Yes 1/2 to 1 Univ ers 25 MG ORAL 4-15 tab PO q4h ity of TAB 00:00: PRN [place] 00 nausea/vom Medical itting Branch CONJ Yes 1 g Univers ESTROGENS 4-15 Vaginal ity of VAG CREAM 00:00: QHS twice [place] as 0.625MG/G 00 a week x 4 [facility] Branch HYDROCODONE Yes 1-2 Tab Uni vers -ACETAMINOP 4-15 Oral ity of HEN 5-325 00:00: Q6HPRN [place] MG ORAL TAB 00 Medical Branch IBUPROFEN 0 Yes 1 Tab Oral Un patricia 600 MG ORAL 4-15 Q6H ity of TAB 00:00: [place] 00 Medical Branch PHENERGAN Yes 1/2 to 1 Univ ers 25 MG ORAL 4-15 tab PO q4h ity of TAB 00:00: PRN [place] nausea/vom Medical itting Branch CONJ Yes 1 g Univers ESTROGENS 4-15 Vaginal ity of VAG CREAM 00:00: QHS twice [place] as 0.625MG/G 00 a week x 4 [facility] Branch HYDROCODONE Yes 1-2 Tab Uni vers -ACETAMINOP 4-15 Oral ity of HEN 5-325 00:00: Q6HPRN [place] MG ORAL TAB 00 Medical Branch IBUPROFEN Yes 1 Tab Oral Un patricia 600 MG ORAL 4-15 Q6H ity of TAB 00:00: [place] [facility] Branch PHENERGAN Yes 1/2 to 1 Univ ers 25 MG ORAL 4-15 tab PO q4h ity of TAB 00:00: PRN nausea/vom Medical itting Branch CONJ Yes 1 g Univers ESTROGENS 4-15 Vaginal ity of VAG CREAM 00:00: QHS twice [place] as 0.625MG/G 00 a week x 4 [facility] Branch HYDROCODONE Yes 1-2 Tab Uni vers -ACETAMINOP 4-15 Oral ity of HEN 5-325 00:00: Q6HPRN [place] MG ORAL TAB 00 Medical Branch IBUPROFEN 0 Yes 1 Tab Oral Un patricia 600 MG ORAL 4-15 Q6H ity of TAB 00:00: [place] [facility] Branch PHENERGAN Yes 1/2 to 1 Univ ers 25 MG ORAL 4-15 tab PO q4h ity of TAB 00:00: PRN 00 nausea/vom Medical itting Branch Mirtazapine Mirtazapine No Mirtazapin e atorvastati atorvastati No atorvastat n n in Atorvastati Atorvastati No Atorvastat n Calcium n Calcium in Calcium Eszopiclone Eszopiclone No Eszopiclon e Donepezil Donepezil No Donepezil HCl HCl HCl traZODone traZODone No traZODone HCl HCl HCl HYDROcodone HYDROcodone No HYDROcodon -Acetaminop -Acetaminop e-Acetamin hen hen ophen Omeprazole Omeprazole No QD Omeprazole 10 MG 10 MG 10 MG Aspir-81 Aspir-81 No Aspir-81 ZyrTEC ZyrTEC No 1{table QD ZyrTEC Allergy 10 Allergy 10 t} Allergy 10 MG MG MG Amphetamine Amphetamine No Amphetamin -Dextroamph -Dextroamph e-Dextroam etamine etamine phetamine risperiDONE risperiDONE No risperiDON E Methocarbam Methocarbam No Methocarba ol ol mol PARoxetine PARoxetine No PARoxetine HCl HCl HCl Mirtazapine Mirtazapine No Mirtazapin e Benztropine Benztropine No Benztropin Mesylate Mesylate e Mesylate Vitamin B6 Vitamin B6 No Vitamin B6 atorvastati atorvastati No atorvastat n n in Temazepam Temazepam No Temazepam FLUoxetine FLUoxetine No FLUoxetine HCl HCl HCl QUEtiapine QUEtiapine No QUEtiapine Fumarate Fumarate Fumarate Propranolol Propranolol No Propranolo HCl HCl l HCl Fluoxetine Fluoxetine No Fluoxetine Gabapentin Gabapentin No Gabapentin Propranolol Propranolol No Propranolo HCl HCl l HCl Benztropine Benztropine No Benztropin Mesylate Mesylate e Mesylate Vitamin B6 Vitamin B6 No Vitamin B6 Methocarbam Methocarbam No Methocarba ol ol mol Donepezil Donepezil No Donepezil HCl HCl HCl Amphetamine Amphetamine No Amphetamin -Dextroamph -Dextroamph e-Dextroam etamine etamine phetamine QUEtiapine QUEtiapine No QUEtiapine Fumarate Fumarate Fumarate Omeprazole Omeprazole No QD Omeprazole 10 MG 10 MG 10 MG ZyrTEC ZyrTEC No 1{table QD ZyrTEC Allergy 10 Allergy 10 t} Allergy 10 MG MG MG Temazepam Temazepam No Temazepam HYDROcodone HYDROcodone No HYDROcodon -Acetaminop -Acetaminop e-Acetamin hen hen ophen Eszopiclone Eszopiclone No Eszopiclon e risperiDONE risperiDONE No risperiDON E FLUoxetine FLUoxetine No FLUoxetine HCl HCl HCl Mirtazapine Mirtazapine No Mirtazapin e Atorvastati Atorvastati No Atorvastat n Calcium n Calcium in Calcium Aspir-81 Aspir-81 No Aspir-81 atorvastati atorvastati No atorvastat n n in Fluoxetine Fluoxetine No Fluoxetine traZODone traZODone No traZODone HCl HCl HCl Gabapentin Gabapentin No Gabapentin PARoxetine PARoxetine No PARoxetine HCl HCl HCl risperiDONE risperiDONE No risperiDON E ZyrTEC ZyrTEC No 1{table QD ZyrTEC Allergy 10 Allergy 10 t} Allergy 10 MG MG MG Methocarbam Methocarbam No Methocarba ol ol mol Propranolol Propranolol No Propranolo HCl HCl l HCl traZODone traZODone No traZODone HCl HCl HCl Aspir-81 Aspir-81 No Aspir-81 Eszopiclone Eszopiclone No Eszopiclon e Vitamin B6 Vitamin B6 No Vitamin B6 QUEtiapine QUEtiapine No QUEtiapine Fumarate Fumarate Fumarate Atorvastati Atorvastati No Atorvastat n Calcium n Calcium in Calcium Temazepam Temazepam No Temazepam atorvastati atorvastati No atorvastat n n in FLUoxetine FLUoxetine No FLUoxetine HCl HCl HCl Fluoxetine Fluoxetine No Fluoxetine Omeprazole Omeprazole No QD Omeprazole 10 MG 10 MG 10 MG Donepezil Donepezil No Donepezil HCl HCl HCl Mirtazapine Mirtazapine No Mirtazapin e Gabapentin Gabapentin No Gabapentin Benztropine Benztropine No Benztropin Mesylate Mesylate e Mesylate PARoxetine PARoxetine No PARoxetine HCl HCl HCl HYDROcodone HYDROcodone No HYDROcodon -Acetaminop -Acetaminop e-Acetamin hen hen [place]hen Amphetamine Amphetamine No Amphetamin -Dextroamph -Dextroamph e-Dextroam etamine etamine phetamine Donepezil Donepezil No Donepezil HCl HCl HCl Vitamin B6 Vitamin B6 No Vitamin B6 Fluoxetine Fluoxetine No Fluoxetine Risperidone Risperidone No Risperidon e Propranolol Propranolol No Propranolo HCl HCl l HCl Temazepam Temazepam No Temazepam Mirtazapine Mirtazapine No Mirtazapin e Paroxetine Paroxetine No Paroxetine HCl HCl HCl Benztropine Benztropine No Benztropin Mesylate Mesylate e Mesylate Methocarbam Methocarbam No Methocarba ol ol mol Omeprazole Omeprazole No QD Omeprazole 10 MG 10 MG 10 MG Amphetamine Amphetamine No Amphetamin -Dextroamph -Dextroamph e-Dextroam etamine etamine phetamine Fluoxetine Fluoxetine No Fluoxetine HCl HCl HCl Eszopiclone Eszopiclone No Eszopiclon e Quetiapine Quetiapine No Quetiapine Fumarate Fumarate Fumarate Gabapentin Gabapentin No Gabapentin atorvastati atorvastati No atorvastat n n in Atorvastati Atorvastati No Atorvastat n Calcium n Calcium in Calcium Aspir-81 Aspir-81 No Aspir-81 Zyrtec Zyrtec No 1{table QD Zyrtec Allergy 10 Allergy 10 t} Allergy 10 MG MG MG Risperidone Risperidone No Risperidon e Fluoxetine Fluoxetine No Fluoxetine Amphetamine Amphetamine No Amphetamin -Dextroamph -Dextroamph e-Dextroam etamine etamine phetamine Gabapentin Gabapentin No Gabapentin Zyrtec Zyrtec No 1{table QD Zyrtec Allergy 10 Allergy 10 t} Allergy 10 MG MG MG Propranolol Propranolol No Propranolo HCl HCl l HCl Omeprazole Omeprazole No QD Omeprazole 10 MG 10 MG 10 MG Vitamin B6 Vitamin B6 No Vitamin B6 Fluoxetine Fluoxetine No Fluoxetine HCl HCl HCl Benztropine Benztropine No Benztropin Mesylate Mesylate e Mesylate Paroxetine Paroxetine No Paroxetine HCl HCl HCl Atorvastati Atorvastati No Atorvastat n Calcium n Calcium in Calcium Quetiapine Quetiapine No Quetiapine Fumarate Fumarate Fumarate Methocarbam Methocarbam No Methocarba ol ol mol Donepezil Donepezil No Donepezil HCl HCl HCl Risperidone Risperidone Yes Mario not Common Ale[place]andro defined [facility] atorvastati atorvastati Yes Mario not Common n n [place]andro defined [facility] Donepezil Donepezil Yes Mario not Co mmon HCl HCl Alejandro defined [facility] Vitamin B6 Vitamin B6 Yes Mario not Common Ale[place] defined Spirit [facility] Fluoxetine Fluoxetine Yes Mario not Common Alejandro defined [facility] Gabapentin Gabapentin Yes Mario not Common Ale[place]andro defined Spirit [facility] Aspir-81 Aspir-81 Yes Mario not Comm on Alejanrdo defined Spirit [facility] Mirtazapine Mirtazapine Yes Mario not Common Alejandro defined Spirit [facility] Propranolol Propranolol Yes Mario not Common HCl HCl Alejandro defined [facility] Amphetamine Amphetamine Yes Mario not Common -Dextroamph -Dextroamph Alejandro defined Spirit etamine etamine - [facility] Temazepam Temazepam No Temazepam Eszopiclone Eszopiclone No Eszopiclon e Aspir-81 Aspir-81 No Aspir-81 Immunizations Ordered Filled Immunization Date Status Comments [facility] e Immunization Name Name SARS-COV-2 COVID-19 2021-10-09 Completed Unive rsity of PFIZER VACCINE 00:00:00 [facility] SARS-COV-2 COVID-19 2021-10-09 Completed Unive rsity of PFIZER VACCINE 00:00:00 [facility] SARS-COV-2 COVID-19 2021-10-09 Completed Unive rsity of PFIZER VACCINE 00:00:00 [facility] SARS-COV-2 COVID-19 2021-10-09 Completed Unive rsity of PFIZER VACCINE 00:00:00 [facility] SARS-COV-2 COVID-19 2021-10-09 Completed Unive rsity of PFIZER VACCINE 00:00:00 [facility] SARS-COV-2 COVID-19 2021-10-09 Completed Unive rsity of PFIZER VACCINE 00:00:00 [facility] SARS-COV-2 COVID-19 2021-10-09 Completed Unive rsity of PFIZER VACCINE 00:00:00 [facility] Bupivicaine [place] Bupivicaine [place] 2021-07-16 Completed [facility] - 13:49:00 [facility] Kenalog Kenalog 2021-07-16 Completed [facility] - (Triamcinolone) (Triamcinolone) 13:48:00 [facility] SARS-COV-2 COVID-19 2021-01-12 Completed Unive rsity of PFIZER VACCINE 00:00:00 [facility] SARS-COV-2 COVID-19 2021-01-12 Completed Unive rsity of PFIZER VACCINE 00:00:00 [facility] SARS-COV-2 COVID-19 2021-01-12 Completed Unive rsity of PFIZER VACCINE 00:00:00 [facility] SARS-COV-2 COVID-19 2021-01-12 Completed Unive rsity of PFIZER VACCINE 00:00:00 [facility] SARS-COV-2 COVID-19 2021-01-12 Completed Unive rsity of PFIZER VACCINE 00:00:00 [place] [facility] SARS-COV-2 COVID-19 2021-01-12 Completed Unive rsity of PFIZER VACCINE 00:00:00 [facility] Branch SARS-COV-2 COVID-19 2021-01-12 Completed Unive rsity of PFIZER VACCINE 00:00:00 [facility] Branch SARS-COV-2 COVID-19 2021-01-12 Completed Unive rsity of PFIZER VACCINE 00:00:00 [facility] Branch SARS-COV-2 COVID-19 2021-01-12 Completed Unive rsity of PFIZER VACCINE 00:00:00 [facility] Branch SARS-COV-2 COVID-19 2021-01-12 Completed Unive rsity of PFIZER VACCINE 00:00:00 [facility] Branch SARS-COV-2 COVID-19 2021-01-12 Completed Unive rsity of PFIZER VACCINE 00:00:00 [facility] Branch SARS-COV-2 COVID-19 2021-01-12 Completed Unive rsity of PFIZER VACCINE 00:00:00 [facility] Branch SARS-COV-2 COVID-19 2021-01-12 Completed Unive rsity of PFIZER VACCINE 00:00:00 [facility] Branch SARS-COV-2 COVID-19 2021-01-12 Completed Unive rsity of PFIZER VACCINE 00:00:00 [facility] Branch SARS-COV-2 COVID-19 2021-01-12 Completed Unive rsity of PFIZER VACCINE 00:00:00 [facility] Branch SARS-COV-2 COVID-19 2020-12-22 Completed Unive rsity of PFIZER VACCINE 00:00:00 [facility] Branch SARS-COV-2 COVID-19 2020-12-22 Completed Unive rsity of PFIZER VACCINE 00:00:00 [facility] Branch SARS-COV-2 COVID-19 2020-12-22 Completed Unive rsity of PFIZER VACCINE 00:00:00 [facility] Branch SARS-COV-2 COVID-19 2020-12-22 Completed Unive rsity of PFIZER VACCINE 00:00:00 [facility] Branch SARS-COV-2 COVID-19 2020-12-22 Completed Unive rsity of PFIZER VACCINE 00:00:00 [facility] Branch SARS-COV-2 COVID-19 2020-12-22 Completed Unive rsity of PFIZER VACCINE 00:00:00 [facility] SARS-COV-2 COVID-19 2020-12-22 Completed Unive rsity of PFIZER VACCINE 00:00:00 [facility] SARS-COV-2 COVID-19 2020-12-22 Completed Unive rsity of PFIZER VACCINE 00:00:00 [facility] SARS-COV-2 COVID-19 2020-12-22 Completed Unive rsity of PFIZER VACCINE 00:00:00 [facility] SARS-COV-2 COVID-19 2020-12-22 Completed Unive rsity of PFIZER VACCINE 00:00:00 [facility] SARS-COV-2 COVID-19 2020-12-22 Completed Unive rsity of PFIZER VACCINE 00:00:00 [facility] SARS-COV-2 COVID-19 2020-12-22 Completed Unive rsity of PFIZER VACCINE 00:00:00 [facility] SARS-COV-2 COVID-19 2020-12-22 Completed Unive rsity of PFIZER VACCINE 00:00:00 [facility] SARS-COV-2 COVID-19 2020-12-22 Completed Unive rsity of PFIZER VACCINE 00:00:00 [facility] SARS-COV-2 COVID-19 2020-12-22 Completed Unive rsity of PFIZER VACCINE 00:00:00 [facility] Bupivicaine [place] Bupivicaine [place] 2020-12-19 Completed [facility] - 14:18:00 [facility] Kenalog Kenalog 2020-12-19 Completed [facility] - (Triamcinolone) (Triamcinolone) 14:18:00 [facility] Bupivicaine [place] Bupivicaine [place] 2020-12-19 Completed [facility] - 14:18:00 [facility] Kenalog Kenalog 2020-12-19 Completed [facility] - (Triamcinolone) (Triamcinolone) 14:18:00 [facility] Bupivicaine [place] Bupivicaine [place] 2020-12-19 Completed [facility] - 14:18:00 [facility] Kenalog Kenalog 2020-12-19 Completed [facility] - (Triamcinolone) (Triamcinolone) 14:18:00 [facility] Bupivicaine [place] Bupivicaine [place] 2020-12-19 Completed Common [facility] - 14:18:00 [facility] Kenalog Kenalog 2020-12-19 Completed [facility] - (Triamcinolone) (Triamcinolone) 14:18:00 [facility] Bupivicaine Douglas Bupivicaine Douglas 2020-08-14 Completed [facility] - 11:39:00 [facility] Bupivicaine Douglas Bupivicaine Douglas 2020-08-14 Completed [facility] - 11:39:00 [facility] Bupivicaine Douglas Bupivicaine Douglas 2020-08-14 Completed [facility] - 11:39:00 [facility] Bupivicaine Douglas Bupivicaine Douglas 2020-08-14 Completed [facility] - 11:39:00 [facility] Kenanamaria Kenalog 2020-08-14 Completed [facility] (Triamcinolone) (Triamcinolone) 11:38:00 [facility] Kenanamaria Kenalog 2020-08-14 Completed [facility] (Triamcinolone) (Triamcinolone) 11:38:00 [facility] Kenanamaria Kenalog 2020-08-14 Completed [facility] (Triamcinolone) (Triamcinolone) 11:38:00 [facility] Kenalog Kenalog 2020-08-14 Completed [facility] (Triamcinolone) (Triamcinolone) 11:38:00 [facility] Orthovisc Orthovisc 2020-07-31 Completed [facility] - 14:46:00 [facility] Orthovisc Orthovisc 2020-07-31 Completed [facility] - 14:46:00 [facility] Orthovisc Orthovisc 2020-07-31 Completed [facility] - 14:46:00 [facility] Orthovisc Orthovisc 2020-07-31 Completed [facility] - 14:46:00 [facility] Orthovisc Orthovisc 2020-07-31 Completed [facility] - 14:45:00 [facility] Orthovisc Orthovisc 2020-07-31 Completed [facility] - 14:45:00 [facility] Orthovisc Orthovisc 2020-07-31 Completed [facility] - 14:45:00 [facility] Orthovisc Orthovisc 2020-07-31 Completed [facility] - 14:45:00 [facility] Orthovisc Orthovisc 2020-07-24 Completed [facility] - 09:48:00 [facility] Orthovisc Orthovisc 2020-07-24 Completed [facility] - 09:48:00 [facility] Orthovisc Orthovisc 2020-07-24 Completed [facility] - 09:48:00 [facility] Orthovisc Orthovisc 2020-07-24 Completed [facility] - 09:48:00 [facility] Orthovisc Orthovisc 2020-07-24 Completed [facility] - 09:46:00 [facility] Orthovisc Orthovisc 2020-07-24 Completed [facility] - 09:46:00 [facility] Orthovisc Orthovisc 2020-07-24 Completed [facility] - 09:46:00 [facility] Orthovisc Orthovisc 2020-07-24 Completed [facility] - 09:46:00 [facility] Bupivicaine Douglas Bupivicaine Douglas 2020-07-11 Completed [facility] - 09:47:00 [facility] Bupivicaine Douglas Bupivicaine Douglas 2020-07-11 Completed [facility] - 09:47:00 [facility] Bupivicaine Douglas Bupivicaine Douglas 2020-07-11 Completed [facility] - 09:47:00 [facility] Bupivicaine Douglas Bupivicaine Douglas 2020-07-11 Completed [facility] - 09:47:00 [facility] Kenalog Kenalog 2020-07-11 Completed [facility] (Triamcinolone) (Triamcinolone) 09:45:00 [facility] Kenalog Kenalog 2020-07-11 Completed [facility] (Triamcinolone) (Triamcinolone) 09:45:00 [facility] Kenalog Kenalog 2020-07-11 Completed [facility] (Triamcinolone) (Triamcinolone) 09:45:00 [facility] Kenalog Kenalog 2020-07-11 Completed [facility] (Triamcinolone) (Triamcinolone) 09:45:00 [facility] Orthovisc Orthovisc 2020-07-11 Completed [facility] - 09:44:00 [facility] Orthovisc Orthovisc 2020-07-11 Completed [facility] - 09:44:00 [facility] Orthovisc Orthovisc 2020-07-11 Completed [facility] - 09:44:00 [facility] Orthovisc Orthovisc 2020-07-11 Completed [facility] - 09:44:00 [facility] Orthovisc Orthovisc 2020-07-11 Completed [facility] - 09:43:00 [facility] Orthovisc Orthovisc 2020-07-11 Completed [facility] - 09:43:00 [facility] Orthovisc Orthovisc 2020-07-11 Completed [facility] - 09:43:00 [facility] Orthovisc Orthovisc 2020-07-11 Completed [facility] - 09:43:00 [facility] Vital Signs Vital Name Observation Time Observation Value Comments Source Systolic blood 2022-07-28 17:51:00 138 mm[Hg] Univer [facility] Diastolic blood 2022-07-28 17:51:00 87 mm[Hg] Unive rs[facility] Heart rate 2022-07-28 17:51:00 86 /min [facility] Respiratory rate 2022-07-28 17:51:00 23 /min [facility] Oxygen saturation in 2022-07-28 17:51:00 95 /min [facility] Arterial blood by [facility] Pulse oximetry Branch Body temperature 2022-07-28 17:35:00 36.22 [facility] Body height 2022-07-27 14:10:[address] [facility] Body weight 2022-07-27 14:10:[address] [facility] BMI 2022-07-27 14:10:00 26.93 kg/m2 [facility] Systolic blood 2022-07-28 15:49:00 146 mm[Hg] [facility]iver [facility] Diastolic blood 2022-07-28 15:49:00 100 mm[Hg] Unive rsity of pressure [facility] Body temperature 2022-07-28 15:47:00 36.72 [facility] 2022-07-28 15:45:00 89 /min [facility] Respiratory rate 2022-07-28 15:45:00 20 /[facility] O[facility] in 2022-07-28 15:45:00 95 /min [facility] Arterial blood by [facility] Pulse oximetry Branch Body height 2022-07-27 14:10:00 162.6 cm [facility] Body weight 2022-07-27 14:10:[address] [facility] BMI 2022-07-27 14:10:00 26.93 kg/m2 [facility] height 2022-01-28 11:00:00 62.5 [in_i] [facility] weight 2022-01-28 11:00:00 155 [lb_av] [facility] temperature 2022-01-28 11:00:00 97.3 [degF] [facility] bmi 2022-01-28 11:00:00 27.9 kg/m2 [facility] blood pressure 2022-01-28 11:00:00 118 mm[Hg] [facility] systolic [facility] blood pressure 2022-01-28 11:00:00 72 mm[Hg] [facility] diastolic [facility] height 2021-07-16 13:00:00 62.5 [in_i] [facility] weight 2021-07-16 13:00:00 164 [lb_av] [facility] bmi 2021-07-16 13:00:00 29.51 kg/m2 [facility] blood pressure 2021-07-16 13:00:00 144 mm[Hg] [facility] systolic [facility] blood pressure 2021-07-16 13:00:00 86 mm[Hg] [facility] diastolic [facility] height 2021-04-16 13:30:00 62.5 [in_i] [facility] weight 2021-04-16 13:30:00 164 [lb_av] [facility] temperature 2021-04-16 13:30:00 97.3 [degF] [facility] bmi 2021-04-16 13:30:00 29.51 kg/m2 [facility] blood pressure 2021-04-16 13:30:00 124 mm[Hg] [facility] - systolic [facility] blood pressure 2021-04-16 13:30:00 72 mm[Hg] [facility] diastolic [facility] height 2021-03-12 11:00:00 62.5 [in_i] [facility] weight 2021-03-12 11:00:00 164.3 [lb_av] [facility] bmi 2021-03-12 11:00:00 29.57 kg/m2 [facility] blood pressure 2021-03-12 11:00:00 124 mm[Hg] [facility] - systolic [facility] blood pressure 2021-03-12 11:00:00 84 mm[Hg] [facility] diastolic [facility] height 2021-02-09 10:00:00 62.5 [in_i] [facility] weight 2021-02-09 10:00:00 167 [lb_av] [facility] bmi 2021-02-09 10:00:00 30.05 kg/m2 [facility] blood pressure 2021-02-09 10:00:00 132 mm[Hg] [facility] - systolic [facility] blood pressure 2021-02-09 10:00:00 82 mm[Hg] [facility] diastolic [facility] Procedures Procedure Date / Time Performing Source Performed Clinician PHACOEMULSIFICATION OF 2022-07-28 Mario Loja [facility] CATARACT WITH INTRAOCULAR 16:55:00 Medica l Branch LENS IMPLANT ASSIGNMENT OF BENEFITS 2022-07-23 Doctor Unassigned, [facility] 17:39:21 [facility] SARS-COV-2 COVID-19 2021-10-09 Doctor Unassigned, [facility] VACCINE,0.3ML,IM (PFIZER) 17:11:36 [facility] ASSIGNMENT OF BENEFITS 2021-02-26 Doctor Unassigned, [facility] 18:05:55 [facility] Encounters Start End Encounter Admission Attending Care Care Encounter Source Date/Time Date/Time Type Type Clinicians Facility Department ID 2022-01-28 Outpatient STLMLC STLMLC [id number] Common 11:30:01 [facility] 2022-01-11 Outpatient STLMLC STLMLC [id number] Common 08:36:01 [facility] 2021-11-25 Outpatient STLMLC STLMLC [id number] Common 13:03:19 [id number] [facility] 2021-11-25 Outpatient STLMLC STLMLC [id number] Common 12:59:06 [id number] [facility] 2021-11-25 Outpatient STLMLC STLMLC [id number] Common 12:56:04 [id number] [facility] 2021-11-25 Outpatient STLMLC STLMLC [id number] Common 12:51:08 [id number] [facility] 2021-11-25 Outpatient STLMLC STLMLC [id number] Common 12:46:19 [id number] [facility] 2021-11-25 Outpatient STLMLC STLMLC [id number] Common 12:41:06 [id number] [facility] 2021-11-25 Outpatient STLMLC STLMLC [id number] Common 12:30:56 [id number] [facility] 2021-11-25 Outpatient STLMLC STLMLC [id number] Common 11:50:28 [id number] [facility] 2021-11-25 Outpatient STLMLC STLMLC [id number] Common 11:46:33 [id number] [facility] 2021-11-25 Outpatient STLC STLC [id number] Common 11:38:05 [id number] [facility] 2021-11-25 Outpatient STLMLC STLMLC [id number] Common 11:36:49 [id number] [facility] 2022-07-28 2022-07-28 Outpatient R PURVI [facility] OPH [id number] Univers 10:44:00 12:59:00 MARIO anna [facility] 2022-07-28 2022-07-28 Hospital [facility] [id number] Univers 10:44:00 12:59:00 Encounter Mario WILLIAM [id number] [id number] [id number] [facility] 0[address] Branch 2022-07-28 2022-07-28 Surgery [facility] [id number] Univers 11:17:00 11:51:00 Mario WILLIAM [id number] [id number] [id number] [facility] 020 Branch 2022-07-26 2022-07-26 Laboratory Only, Adc Test [facility] 1.2.840. 114 [id number] Univers 07:30:00 07:45:00 Only Mario Loja 350.1.13.1 0 [id number] [phone] [facility] [address] Branch 2022-07-26 2022-07-26 Outpatient R PURVI [facility] [id number] Univers 07:30:00 07:30:00 MARIO anna [facility] 2022-07-23 2022-07-23 Mainstreaming Facilitator Tati, Adc Lab Main [facility] 1.2.8 40.114 [id number] Univers 11:45:00 12:00:00 Visit Mario Loja 350.1.13.1 0 [id number] [phone] N[place] dical NAL 353 [facility] 2022-07-23 2022-07-23 Outpatient R PURVI [facility] [id number] Univers 11:45:00 11:45:00 MARIO anna [facility] 2022-07-23 2022-07-23 Orders Doctor JERSON 1.2.840.114 [id number] Univers 00:00:00 00:00:00 Only Unassigned, ANA [id number] ity of [place] [facility] [id number] Carlo as [phone] [address] 2022-01-28 2022-01-28 OFFICE STLMLC STLMLC [id number] Co mmon 00:00:00 00:00:00 VISIT EST Spir it PT LEVEL 3 - [facility] 2021-10-09 2021-10-09 Imm/Inj Nurse, Adc Pob Immunization [facility] 1.2.840.114 [id number] Univers 10:30:02 10:30:12 Visit Simeon Moya 350.1.13 .10 ity [facility] [id number] [phone] Nc dical NAL 421 [facility] 2021-10-09 2021-10-09 Outpatient R JEVON [facility] [id number] Univers 10:30:00 10:30:12 SIMEON anna [facility] 2021-07-16 2021-07-16 OFFICE STLMLC STLMLC [id number] Co mmon 00:00:00 00:00:00 VISIT Spirit ESTAB PT - [facility] LEVEL 4 [facility] 2021-04-16 2021-04-16 OFFICE STLMLC STLMLC [id number] Co mmon 00:00:00 00:00:00 VISIT EST Spir it PT LEVEL 3 - [facility] 2021-03-18 2021-03-18 Ancillary Edith Marino [facility] 1.2.840. 114 [id number] Univers 13:01:39 13:41:39 Visit Thuan Barcenas [id number] ity [facility] [id number] [phone] Me dical nal [address] [facility] 2021-03-16 2021-03-16 Ancillary Edith Marino [facility] 1.2.840. 114 [id number] Univers 13:04:10 13:44:10 Visit Thuan Barcenas 350.1.13.10 [place] of [id number] [phone] Nc dical nal [address] [facility] 2021-03-12 2021-03-12 Postop STLMLC STLMLC [id number] Co mmon 00:00:00 00:00:00 visit [facility] 2021-03-11 2021-03-11 Ancillary Cathy Comer [facility] 1.2.840 .114 [id number] Univers 13:04:56 13:44:56 Visit Thuan Barcenas 350.1.13.10 [place] [phone] Nc dical nal [address] [facility] 2021-03-09 2021-03-09 Ancillary Rodrigo Comer [facility] 1.2.840. 114 [id number] Univers 13:04:53 13:44:53 Visit Thuan Barcenas 350.1.13.10 [id number] [phone] Nc dical nal 179 [facility] 2021-03-04 2021-03-04 Ancillary Rodrigo Comer [facility] 1.2.840. 114 [id number] Univers 13:05:12 13:45:12 Visit Thuan Barcenas 350.1.13.10 [place] [phone] Nc dical nal [address] [facility] 2021-03-04 2021-03-04 Outpatient Cassie BARCENAS [facility] [id number] Univers 13:00:00 13:00:00 THUAN ity of [facility] 2021-03-02 2021-03-02 Ancillary Katy Marie [facility] 1 .2.840.114 [id number] Univers 13:04:17 13:44:17 Visit Thuan Barcenas 350.1.13.10 [place] of [id number] [phone] Nc dical nal 179 [facility] 2021-02-26 2021-02-26 Ancillary Katy Marie [facility] 1 .2.840.114 [id number] Univers 13:07:38 14:28:00 Visit Thuan Barcenas 350.1.13.10 ity [facility] [id number] [phone] Nc dical nal [address] [facility] 2021-02-26 2021-02-26 Outpatient R [facility] [id number] Univers 13:00:00 13:00:00 ity of [facility] 2021-02-26 2021-02-26 Orders Doctor ARTHUR 1.2.840.114 [id number] Univers 00:00:00 00:00:00 Only Unassigned, ANA 350.1.13.10 ity of [place] [facility] [id number] [place] as [phone] [address] 2021-02-09 2021-02-09 Postop STLMLC STLMLC [id number] Co mmon 00:00:00 00:00:00 visit [facility] 2021-01-20 2021-01-20 Outpatient STLMLC STLMLC [id number] Common 00:00:00 00:00:00 [facility] 2021-01-14 2021-01-14 Outpatient STLMLC STLMLC [id number] Common 00:00:00 00:00:00 [facility] 2021-01-13 2021-01-13 Outpatient STLMLC STLMLC [id number] Common 00:00:00 00:00:00 [facility] 2021-01-09 2021-01-09 Outpatient STLMLC STLMLC [id number] Common 00:00:00 00:00:00 [facility] 2020-12-19 2020-12-19 Outpatient STLMLC STLMLC [id number] Common 00:00:00 00:00:00 [facility] 2020-12-19 2020-12-19 Outpatient STLMLC STLMLC [id number] Common 00:00:00 00:00:00 [facility] 2020-11-26 2020-11-26 Outpatient STLMLC STLMLC [id number] Common 00:00:00 00:00:00 [facility] 2020-11-26 2020-11-26 Outpatient STLMLC STLMLC [id number] Common 00:00:00 00:00:00 [facility] 2020-11-07 2020-11-07 Outpatient STLMLC STLMLC [id number] Common 00:00:00 00:00:00 [facility] 2020-10-14 2020-10-14 Outpatient STLMLC STLMLC [id number] Common 00:00:00 00:00:00 [facility] 2020-08-14 2020-08-14 Outpatient STLMLC STLMLC [id number] Common 00:00:00 00:00:00 [facility] 2020-07-31 2020-07-31 Outpatient STLMLC STLMLC [id number] Common 00:00:00 00:00:00 [facility] 2020-07-24 2020-07-24 Outpatient STLMLC STLMLC [id number] Common 00:00:00 00:00:00 [facility] 2020-07-11 2020-07-11 Outpatient [facility] [id number] Common 09:30:00 09:30:00 [facility] 2020-06-24 2020-06-24 Out[facility] [id number] Common 15:38:00 15:38:00 t [facility] 2020-06-16 2020-06-16 Out[facility] [id number] Common 08:39:00 08:39:00 t [facility] 2020-06-10 2020-06-10 Outpatient Elzbieta Rico [id number] Common 13:00:00 13:00:00 t [facility] Sp[facility] t [facility] Results This patient has no known results.
--- NOTE | 2023-01-13 14:58 | RAD REPORT ---
[facility]43 pm CLINICAL HISTORY: PALPITATIONS COMPARISON: Chest Pa And Lat (2 Views) dated 01/16/2021; Chest Pa And Lat (2 Views) dated 06/29/2016; CHEST SINGLE VIEW dated 03/23/2015; ABDOMEN 1 VIEW KUB dated 07/30/2013 TECHNIQUE: Portable AP view of the chest. FINDINGS: The lungs are clear.Stable hyperinflation and flattening of the hemidiaphragms, suggestive of COPD. Bibasilar atelectatic changes and chronic interstitial thickening. No pneumothorax or effus ion. The cardiomediastinal contours are unremarkable. IMPRESSION: No acute cardiopulmonary process.
[2023-01-13 15:34] LABS: Protime INR 1.14
[2023-01-13 15:37] LABS: Albumin 3.5 g/dL (3.4-5.0); Bilirubin Total 0.5 mg/dL (0.2-1.0); Protein, Total 6.7 g/dL (6.4-8.2); Troponin High Sensitivity 7.7 pg/mL (<58.9)
[2023-01-13 15:38] LABS: Potassium 4.1 mEq/L (3.5-5.1)
[2023-01-13 16:36] LABS: Hematocrit 40.8 % (36.0-45.0); Lymphocytes % 25.2 % (15.3-44.8); MCV 92.2 fL (80-100); RBC Red Blood Cell Count 4.42 M/uL (3.86-4.86)
--- NOTE | 2023-01-13 17:17 | RAD REPORT ---
EXAM DESCRIPTION: CT - Chest For Pe Angio - 01/13/2023 4:30 pm CLINICAL HISTORY: elevated dd COMPARISON: THORAX WO CONTRAST dated 04/14/2010 TECHNIQUE: Thin axial CT images of the chest were obtained following administration of 95 mL Isovue 370 IV contrast. Multiplanar reconstructions, and maximum intensity projection reconstructions were g enerated and reviewed. Exam utilizes a protocol for optimal evaluation of pulmonary arterial tree. All CT scans are performed using dose optimization technique as appropriate and may include automated exposure control or mA/KV adjustment according to patient size. FINDINGS: Pulmonary arteries are within normal limits, although suboptimal contrast timing, with con trast more concentrated along the pulmonary veins, somewhat limiting evaluation. No emboli or other s uspicious finding. No acute or significant aorta findings. No mass or infiltrate in the lung parenchyma. Stable calcified 1 centimeter left lower lobe granuloma . Moderate apical predominant centrilobular emphysema. No pleural thickening or pleural effusion. No pneumothorax. No abnormal mediastinal or hilar masses or lymphadenopathy seen. No chest wall mass or abnormal axill iary lymphadenopathy. IMPRESSION: No evidence of acute central pulmonary emboli allowing for limitation mentioned above. Negative CT scan of the chest for other significant findings.
[2023-01-13] MEDS ORDERED: METOPROLOL TARTRATE 5 MG/5 ML INJ IV ONE ×2 (17:32→18:21)
[2023-01-13] MEDS ORDERED: NA CHLORIDE 0.9% 500 ML ONE (17:33)
[2023-01-13] MEDS ORDERED: lisinopriL 20 MG TAB ONE (18:20)
--- NOTE | 2023-01-13 18:59 | EDPHYS ---
Physician Documentation [facility] Name: Paula Cowart Age: 72 yrs Sex: Female : 1950 Arrival Date: 01/13/2023 Time: 14:08 Bed 3 Private MD: Jefferson Garcia ED Physician Gregorio Moore HPI: 01/13 17:40 This 72 yrs old Female presents to ER via Ambulatory with complaints of High Blood kb Pressure, Nausea. 17:40 The patient has elevated blood pressure and discovered this rehab. Onset: The kb symptoms/episode began/occurred just prior to arrival. Associated signs and symptoms: Pertinent positives: nausea, Pertinent negatives: chest pain, dizziness, dyspnea, headache, lightheadedness, visual changes, vomiting, weakness. Severity of symptoms: At its worst the blood pressure was moderate. The patient has not experienced similar symptoms in the past. The patient has not recently seen a physician. 17:41 Patient is a 72-year-old female who presents for high blood pressure that was kb discovered at rehab. States she goes to rehab twice a week but they normally do not check her blood pressure. Today they checked it and told her it was too high so she could not participate in rehab. Patient did not want to go to the doctor or the ER so staff called the son to bring her to the hospital. Patient reports nausea but denies any headache, dizziness, chest pain.. Historical: - Allergies: 14:23 No Known Allergies; kr3 - PMHx: 14:23 Deep vein thrombosis; kr3 - Immunization history:: Adult Immunizations not up to date. - Social history:: Smoking status: Patient reports the use of cigarette tobacco products, denies chronic smoking, but will smoke occasionally, Reported history of juuling and/or vaping. ROS: 17:40 Constitutional: Negative for fever, chills, and weight loss. kb 17:40 Abdomen/GI: Positive for nausea, Negative for abdominal pain, vomiting, diarrhea. 17:40 All other systems are negative. Exam: 14:52 Constitutional: This is a well developed, well nourished patient who is awake, alert, kb and in no acute distress. Head/Face: Normocephalic, atraumatic. Eyes: Pupils equal round and reactive to light, extra-ocular motions intact. Lids and lashes normal. Conjunctiva and sclera are non-icteric and not injected. Cornea within normal limits. Periorbital areas with no swelling, redness, or edema. ENT: Moist Mucous membranes Cardiovascular: Regular rate and rhythm with a normal S1 and S2. No gallops, murmurs, or rubs. No pulse deficits. Respiratory: Respirations even and unlabored. No increased work of breathing. Talking in full sentences Abdomen/GI: Soft, non-tender. No distention Skin: Warm, dry with normal turgor. Normal color. MS/ Extremity: Pulses equal, no cyanosis. Neurovascular intact. Full, normal range of motion. Neuro: Awake and alert, GCS 15, oriented to person, place, time, and situation. Moves all extremities. Normal gait. Psych: Awake, alert, with orientation to person, place and time. Behavior, mood, and affect are within normal limits. 14:52 ECG was reviewed by the Attending Physician. Vital Signs: 14:20 BP 199 / 112; Pulse 125; Resp 18; Temp 99.4(TE); Pulse Ox 95% ; Weight 69.85 kg; Height kr3 5 ft. 4 in. ; Pain 0/10; 14:30 BP 190 / 111; Pulse 112; Resp 18; Pulse Ox 94% ; ko1 15:00 BP 190 / 103; Pulse 105; Pulse Ox 96% ; ko1 15:30 BP 181 / 110; Pulse 102; Pulse Ox 94% ; ko1 17:00 BP 191 / 111; Pulse 100; Resp 18; Pulse Ox 94% ; ko1 17:30 BP 187 / 104; Pulse 89; Resp 18; Pulse Ox 94% ; ko1 17:57 BP 182 / 108; Pulse 88; Resp 19; Pulse Ox 97% ; ko1 18:20 BP 189 / 103; Pulse 78; Resp 18; Pulse Ox 95% ; ko1 18:20 BP 183 / 102; Pulse 77; Resp 19; Pulse Ox 94% ; ko1 18:55 BP 174 / 96; Pulse 80; Resp 18; Pulse Ox 94% on R/A; ph 14:20 Body Mass Index 26.43 (69.85 kg, 162.56 cm) kr3 14:20 Pain Scale: Adult kr3 MDM: 14:27 Patient medically screened. kb 14:56 ED course: Patient is a 72-year-old female with a history of high cholesterol, kb emphysema, anxiety, depression who presents with high blood pressure who presents for hypertension. Patient reports nausea, denies any other symptoms. On exam patient has no neurodeficits, respirations even and unlabored, lungs clear bilaterally, ambulates with steady gait. Serum labs, EKG, chest x-ray ordered.. 17:42 Differential diagnosis: hypertensive crisis, Hypertension, PE. Data reviewed: vital kb signs, nurses notes. 17:42 Consideration of Admission/Observation Escalation of care including kb admission/observation considered. Admission considered due to hypertension and tachycardia, but work-up reassuring and patient would like to go home.. Management of patient was discussed with the following: Dr Moore. Independent interpretation of the following test(s) in the Emergency Department EKG: See my EKG interpretation above. Historians other than the Patient: Daughter/Son: son. 18:58 Counseling: I had a detailed discussion with the patient and/or guardian regarding: the kb historical points, exam findings, and any diagnostic results supporting the discharge/admit diagnosis, lab results, radiology results, the need for outpatient follow up, a family practitioner, to return to the emergency department if symptoms worsen or persist or if there are any questions or concerns that arise at home. 01/13 14:27 Order name: D-Dimer; Complete Time: 15:38 kb 01/13 14:27 Order name: Magnesium; Complete Time: 15:39 kb 01/13 14:27 Order name: NT PRO-BNP; Complete Time: 15:39 kb 01/13 14:27 Order name: PT-INR; Complete Time: 15:38 kb 01/13 14:27 Order name: Troponin HS; Complete Time: 15:39 kb 01/13 14:27 Order name: XRAY Chest (1 view); Complete Time: 15:13 kb 01/13 14:27 Order name: EKG; Complete Time: 14:28 kb 01/13 14:27 Order name: Cardiac monitoring; Complete Time: 14:35 kb 01/13 14:27 Order name: EKG - Nurse/Tech; Complete Time: 16:00 kb 01/13 14:27 Order name: IV Saline Lock; Complete Time: 16:17 kb 01/13 14:27 Order name: Labs collected and sent; Complete Time: 16:17 kb 01/13 14:27 Order name: O2 Per Protocol; Complete Time: 14:35 kb 01/13 14:27 Order name: O2 Sat Monitoring; Complete Time: 14:35 kb 01/13 14:27 Order name: CMP; Complete Time: 15:39 kb 01/13 15:24 Order name: Labs - recollect needed: recollect cbc; Complete Time: 16:17 bd 01/13 14:27 Order name: CBC with Diff; Complete Time: 16:49 kb 01/13 15:39 Order name: CT Chest For PE Angio; Complete Time: 17:21 kb EC:52 Rate is 107 beats/min. Rhythm is regular. Right axis deviation noted. IL interval is kb normal at 72 msec. QRS interval is normal at 467 msec. Administered Medications: 17:30 Drug: NS 0.9% IV 500 ml Route: IV; Rate: bolus; Site: left wrist; ko1 18:25 Follow up: Response: No adverse reaction; IV Status: Completed infusion ph 17:30 Drug: Metoprolol IVP 5 mg Route: IVP; Site: left wrist; ko1 18:25 Follow up: Response: No adverse reaction ph 18:25 Drug: Lisinopril PO 20 mg Route: PO; ph 18:56 Follow up: Response: No adverse reaction; Blood pressure is lowered ph 18:25 Drug: Metoprolol IVP 5 mg Route: IVP; Site: left antecubital; ph 18:55 Follow up: Response: No adverse reaction; Blood pressure is lowered ph Disposition Summary: 01/13/23 18:59 Discharge Ordered Location: Home kb Condition: Stable kb Diagnosis - Elevated blood-pressure reading, without diagnosis of hypertension kb Followup: kb - With: Emergency Department - When: As needed - Reason: Worsening of condition Followup: kb - With: Private Physician - When: 2 - 3 days - Reason: Recheck today's complaints, Continuance of care, Re-evaluation by your physician Forms: - Medication Reconciliation Form kb - Thank You Letter kb - Antibiotic Education kb - Prescription Opioid Use kb Signatures: Dispatcher [employer] EDPatience Aviles, [employer] BUSINESS SUPPORT ASSOCIATE-Gayla Garay Patricia RN CONSTANCE Nilsa Rivera RN RN kr3 Maria G Roldan RN RN ko1 Corrections: (The following items were deleted from the chart) 17:40 14:52 Rate is 107 beats/min. Rhythm is regular. QRS [place] is Normal. IL interval is kb normal at 72 msec. QRS interval is normal at 467 msec. kb 17:44 14:56 ED course: Patient is a 72-year-old female with a history of high cholesterol, kb emphysema, anxiety, depression who presents with high blood pressure.. kb
--- NOTE | 2023-01-13 18:59 | ER ---
Nurse's Notes [facility] Name: Paula Cowart Age: 72 yrs Sex: Female : 1950 Arrival Date: 01/13/2023 Time: 14:08 Bed 3 Private MD: Jefferson Garcia Diagnosis: Elevated blood-pressure reading, without diagnosis of hypertension Presentation: 01/13 14:20 Chief complaint: Patient states: I was at therapy and they checked my blood pressure kr3 and sent me to the ER. Coronavirus screen: Vaccine status: Patient reports receiving the 2nd dose of the covid vaccine. Ebola Screen: Patient denies travel to an Ebola-affected area in the 21 days before illness onset. Initial Sepsis Screen: Does the patient meet any 2 criteria? No. Patient's initial sepsis screen is negative. Does the patient have a suspected source of infection? No. Patient's initial sepsis screen is negative. Risk Assessment: Do you want to hurt yourself or someone else? Patient reports no desire to harm self or others. Onset of symptoms was January 13, 2023. 14:20 Method Of Arrival: Ambulatory kr3 14:34 Acuity: TOSHA 2 kr3 Triage Assessment: 14:25 General: Appears in no apparent distress. comfortable, Behavior is calm, cooperative, kr3 appropriate for age. Historical: - Allergies: 14:23 No Known Allergies; kr3 - PMHx: 14:23 Deep vein thrombosis; kr3 - Immunization history:: Adult Immunizations not up to date. - Social history:: Smoking status: Patient reports the use of cigarette tobacco products, denies chronic smoking, but will smoke occasionally, Reported history of juuling and/or vaping. Screenin:07 [facility] ED Fall Risk Assessment (Adult) History of falling in the last 3 months, ph including since admission No falls in past 3 months (0 pts). Abuse screen: Denies threats or abuse. Denies injuries from another. Nutritional screening: No deficits noted. Tuberculosis screening: No symptoms or risk factors identified. Assessment: 15:30 General: Appears in no apparent distress. comfortable, Behavior is calm, cooperative, ph appropriate for age. Pain: Complains of pain in right worship and left worship. Neuro: Level of Consciousness is awake, alert, obeys commands, Oriented to person, place, time, situation, Reports headache Denies blurred vision dizziness. Cardiovascular: Capillary refill < 3 seconds in bilateral fingers Patient's skin is warm and dry. Respiratory: Airway is patent Respiratory effort is even, unlabored, Respiratory pattern is regular, symmetrical. GI: Abdomen is non-distended. Derm: Skin is intact, is healthy with good turgor, Skin is pink, warm \T\ dry. Musculoskeletal: Circulation, motion, and sensation intact. Range of motion: intact in all extremities. 18:26 Reassessment: Patient appears in no apparent distress at this time. Patient and/or ph family updated on plan of care and expected duration. Pain level reassessed. Patient is alert, oriented x 3, equal unlabored respirations, skin warm/dry/pink. Vital Signs: 14:20 BP 199 / 112; Pulse 125; Resp 18; Temp 99.4(TE); Pulse Ox 95% ; Weight 69.85 kg; Height kr3 5 ft. 4 in. ; Pain 0/10; 14:30 BP 190 / 111; Pulse 112; Resp 18; Pulse Ox 94% ; ko1 15:00 BP 190 / 103; Pulse 105; Pulse Ox 96% ; ko1 15:30 BP 181 / 110; Pulse 102; Pulse Ox 94% ; ko1 17:00 BP 191 / 111; Pulse 100; Resp 18; Pulse Ox 94% ; ko1 17:30 BP 187 / 104; Pulse 89; Resp 18; Pulse Ox 94% ; ko1 17:57 BP 182 / 108; Pulse 88; Resp 19; Pulse Ox 97% ; ko1 18:20 BP 189 / 103; Pulse 78; Resp 18; Pulse Ox 95% ; ko1 18:20 BP 183 / 102; Pulse 77; Resp 19; Pulse Ox 94% ; ko1 18:55 BP 174 / 96; Pulse 80; Resp 18; Pulse Ox 94% on R/A; ph 14:20 Body Mass Index 26.43 (69.85 kg, 162.56 cm) kr3 14:20 Pain Scale: Adult kr3 ED Course: 14:08 Patient arrived in ED. mr 14:08 Jefferson Garcia is Private Physician. mr 14:13 Patience Coronado FNP-C is [facility]. kb 14:13 Gregorio Moore MD is Attending Physician. kb 14:23 Triage completed. kr3 14:25 Arm band placed on right wrist. Patient placed in an exam room, on a stretcher. kr3 14:27 Maria G Roldan, RN is Primary Nurse. ko1 14:30 Patient has correct armband on for positive identification. Bed in low position. Call ko1 light in reach. Side rails up X2. monitoring and evaluation advisor on. Pulse ox on. NIBP on. 14:45 XRAY Chest (1 view) In Process Unspecified. EDMS 15:30 Inserted saline lock: 22 gauge in right hand, using aseptic technique. ph 16:32 CT Chest For PE Angio In Process Unspecified. EDMS 18:26 No provider procedures requiring assistance completed. ph Administered Medications: 17:30 Drug: NS 0.9% IV 500 ml Route: IV; Rate: bolus; Site: left wrist; ko1 18:25 Follow up: Response: No adverse reaction; IV Status: Completed infusion ph 17:30 Drug: Metoprolol IVP 5 mg Route: IVP; Site: left wrist; ko1 18:25 Follow up: Response: No adverse reaction ph 18:25 Drug: Lisinopril PO 20 mg Route: PO; ph 18:56 Follow up: Response: No adverse reaction; Blood pressure is lowered ph 18:25 Drug: Metoprolol IVP 5 mg Route: IVP; Site: left antecubital; ph 18:55 Follow up: Response: No adverse reaction; Blood pressure is lowered ph Medication: 18:26 VIS not applicable for this client. ph Outcome: 18:59 Discharge ordered by MD. poe Signatures: Dispatcher [employer] EDMS Patience Coronado, [employer]PORATE SALES REPRESENTATIVE-Jennie Walker Nikki sarmiento Catherine Salgado, RN RN Nilsa Rivera RN RN kr3 Maria G Roldan, RN RN ko1 Corrections: (The following items were deleted from the chart) 14:35 14:20 Acuity: TOSHA 3 kr3 kr3
[2023-01-14 02:18] VITALS: TEMP 99.4
[2023-01-14 03:18] VITALS: BP 183/102; O2SAT 94
--- NOTE | 2023-01-14 11:45 | EKG ---
Test Date: 2023-01-13 Test Time: 14:48:44 Backend Java Developer: PH MEASUREMENT RESULTS: Intervals: Rate: 107 CT: 162 QRSD: 72 QT: 350 QTc: 467 Mcgee: P: CT: 162 QRS: 196 T: 163 INTERPRETIVE STATEMENTS: Sinus tachycardia Right superior axis deviation Nonspecific ST and T wave abnormality Abnormal ECG Compared to ECG 03/23/2015 14:03:17 Right superior axis now present Sinus rhythm no longer present ST (T wave) deviation still present Electronically Signed On 01-14-23 11:44:11 CDT by Noman Wick
== END 2023-01-13 19:12 | disposition home or self-care (01) ==
LOC: ER 14:04
DX: R03.0 Elevated blood-pressure reading, without diagnosis of hypertension (principal); R11.0 Nausea; E78.00 Pure hypercholesterolemia, unspecified; Z72.0 Tobacco use; Z86.718 Personal history of other venous thrombosis and embolism
CPT/HCPCS: 93005; 85025; 36415; 83735; 85610; 85379; 84484; 80053; 83880; 71275; 71045; 99284; Q9967; J7040

== ENCOUNTER 2024-05-23 08:24 | Observation (INO) | payer OTHER ==
[2024-05-18 10:11] LABS: Absolute Basophils 0.1 K/uL (0-0.5); Absolute Eosinophils 0.2 K/uL (0-0.5); Absolute Monocytes 0.6 K/uL (0.1-1.3); Absolute Neutrophil 3.5 K/uL (1.8-8.0); Basophils % 1.2 % (0-1.3); Eosinophils % 2.6 % (0-4.4); Hematocrit 41.9 % (36.0-45.0); Hemoglobin 13.9 g/dL (12.0-15.0); Lymphocytes % 32.2 % (15.3-44.8); MCH 30.6 pg (27.0-35.0); MCHC 33.1 g/dL (32.0-36.0); MCV 92.3 fL (80-100); MPV 7.4 fL (7.6-11.3); Monocytes % 9.3 % (3.3-12.3); Neutrophils % 54.7 % (41.7-73.7); Nucleated Red Blood Cells % 0.1 % (0-0); Platelets 273 thou/uL (152-406); RBC Red Blood Cell Count 4.54 M/uL (3.86-4.86); Red Cell Distribution Width 12.9 % (12.1-15.2)
[2024-05-18 10:23] LABS: Anion Gap 7.7 mEq/L (5.0-15.0); Potassium 3.7 mEq/L (3.5-5.1)
[2024-05-18 12:04] LABS: PT Prothrombin Time 11.4 SECONDS (9.4-12.5); PTT, Activated Partial Thromb 30.6 SECONDS (24.3-36.9); Protime INR 1.02
--- NOTE | 2024-05-18 15:04 | RAD REPORT ---
EXAM DESCRIPTION: RAD - Chest Pa And Lat (2 Views) - 05/18/2024 2:46 pm CLINICAL HISTORY: PRE OP SHOULDER REPLACEMENT COMPARISON: Chest Pa And Lat (2 Views) dated 02/24/2023; Chest Single View dated 01/13/2023; Chest Pa And Lat (2 Views) dated 01/16/2021; Chest Pa And Lat (2 Views) dated 06/29/2016 FINDINGS: Lines: None. Lungs: No evidence of edema or pneumonia. Pleural: No significant pleural effusions or pneumothorax. Cardiac: The heart size is within normal limits. Mediastinum: Within normal limits. Bones: No acute fractures. Other: None IMPRESSION: No acute cardiopulmonary disease.
--- NOTE | 2024-05-21 16:42 | EKG ---
Test Date: 2024-05-18 Test Time: 09:33:40 Marketing Project Lead: SASHA MEASUREMENT RESULTS: Intervals: Rate: 68 NH: 168 QRSD: 84 QT: 404 QTc: [address] [place]: P: 44 NH: 168 QRS: -10 T: 49 INTERPRETIVE STATEMENTS: Normal sinus rhythm Normal ECG Compared to ECG 01/13/2023 14:48:44 Sinus tachycardia no longer present Right superior axis no longer present ST (T wave) deviation no longer present Electronically Signed On 05-21-24 16:32:56 CDT by Noman Wick
[2024-05-23] MEDS: Ringers Lactate 1,000 ML IV ONE ×3 (08:50→13:56)
[2024-05-23] MEDS: dexAMETHasone 10 MG/ML VIAL ONE (09:49)
[2024-05-23] MEDS: FENTANYL CITR 100 MCG/2 ML ONE (09:49)
[2024-05-23] MEDS: EPINEPHRINE 1 MG/ML VIAL ONE (09:49)
[2024-05-23] MEDS: LIDOCAINE 1% MPF 5 ML VIAL ONE (09:49)
[2024-05-23] MEDS: MIDAZOLAM HCL 2 MG/2 ML INJ ONE (09:50)
[2024-05-23] MEDS: ROPLVACAINE HCL 20 ML ONE (09:50)
[2024-05-23] MEDS ORDERED: propofoL 200 MG/20 ML VIAL IV ONE (10:27)
[2024-05-23] MEDS ORDERED: LIDOCAINE 1% MPF 5 ML VIAL ONE (10:27)
[2024-05-23] MEDS ORDERED: ROCURONIUM 50 MG/5 ML VIAL IV ONE (10:27)
[2024-05-23] MEDS: TRANEXAMIC ACID 1,000 MG/10 ML VIAL IV ONE ×2 (10:44→10:50)
[2024-05-23] MEDS ORDERED: EPHEDRINE SULF 50 MG/ML VIAL ONE ×2 (11:12→13:00)
[2024-05-23] MEDS ORDERED: dexAMETHasone 4 MG/ML VIAL ONE (11:43)
[2024-05-23] MEDS ORDERED: ONDANSETRON 4 MG/2 ML VIAL ONE (11:43)
[2024-05-23] MEDS ORDERED: KETOROLAC 30 MG/ML INJ ONE (11:43)
[2024-05-23] MEDS: CEFAZOLIN SODIUM 2 GM/VIAL ONE (12:04)
[2024-05-23] MEDS ORDERED: NEOSTIGMINE 1 MG/ML -10 ML VIAL ONE (13:46)
[2024-05-23] MEDS ORDERED: GLYCOPYRROLATE 0.2 MG/ML SYR ONE (13:46)
--- NOTE | 2024-05-23 13:51 | P.BOP ---
Preoperative diagnosis: right shoulder osteoarthritis Postoperative diagnosis: same Primary procedure: right total shoulder arthroplasty Pasting Machine Offbearer: NONE,NONE Estimated blood loss: 30 cc Specimen: right humeral head Findings: see dictation Anesthesia: General Complications: None Implants: [employer] Faye 9 mini stem, 46x18 head, 2 glenoid with TM post Fluids & blood products: per anesthesia record Transferred to: Recovery Room Condition: Good
[2024-05-23] MEDS ORDERED: ACETAMINOPHEN 325 MG TABLET PO PRN (13:52)
[2024-05-23] MEDS ORDERED: DOCUSATE NA 100 MG CAP PO PRN (13:52)
[2024-05-23] MEDS ORDERED: ONDANSETRON 4 MG/2 ML VIAL IV PRN (13:52)
[2024-05-23] MEDS ORDERED: TRAMADOL HCL 50 MG TAB PO PRN (13:52)
[2024-05-23 14:51] LABS: Hematocrit 39.6 % (36.0-45.0)
--- NOTE | 2024-05-23 15:05 | RAD REPORT ---
EXAM DESCRIPTION: RAD - Shoulder 1 View - 05/23/2024 2:26 pm CLINICAL HISTORY: postop COMPARISON: No comparisons FINDINGS/IMPRESSION: Status post right shoulder arthroplasty. No hardware complications appreciated. No new acute fractures. On this view, the arthroplasty appears located.
--- OUTSIDE RECORDS SUMMARY | 2024-05-23 15:10 | XMS REPORT | Continuity of Care Document ---
Author Name Unknown Address [address] [facility] [address] [place] [address] [facility] thconnect Address [address] [facility] 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 Name Role Phone Jose DANN Jefferson Primary Care Physician [phone] MARIO DUMONT Attending Clinician Denilson Sullivan MD, Mario Queen Attending Clinician [phone] Only, Adc Test Attending Clinician Unavailable Pob, Adc Lab Main Attending Clinician Jagdish santana Doctor Unassigned, [place] Attending Clinician U navailable Nurse, Adc Pob Immunization Attending Clinician Unavailable Simeon Escoto DO Attending Clinician [phone] SIMEON ESCOTO Attending Clinician Unavail Edith Mcmillan PT Attending Clinician UnavailThuan Santos MD Attending Clinician [phone] Cathy Comer PTA Attending Clinician Unavail Rodrigo Paiz PTA Attending Clinician THUAN Palafox Attending Clinician Katy Connor PT Attending Clinician Un available MARIO DUMONT Admitting Clinician Mario Abdalla MD Admitting Clinician [phone] Payers Payer Name Policy Type Policy Number Effective Date Expirati on Date Source [facility] [employer] TRS/ERS MCR PPO 1 [id number] 2020 00:00:00 [facility] PPO [id number] 2020 00:00:00 MEDICARE NOVITAS MB [id number] C [facility] MEDICARE NOVITAS MB [id number] C [facility] MEDICARE NOVITAS MB [id number] C [facility] MEDICARE NOVITAS MB [id number] C [facility] Problems Condition Name Condition Details Condition Category Status Onset Date Resolution Date Last Treatment Date Treating Clinician Comments Source Seizure Seizure Disease Active 2015-10 00:00: 00 [facility] [id number] Status post total left knee replacemen t Problem Active [facility] History of musculoske letal operation Aftercare following joint replacemen t surgery Problem Active [facility] [id number] Primary osteoarthr itis of left shoulder Problem [facility] [id number] Arthritis of left knee Problem Active [facility] [id number] Presence of left artificial knee joint Problem Active [facility] [id number] Primary osteoarthr itis of right knee Problem Active [facility] [id number] Primary osteoarthr itis of left knee Problem Active [facility] [id number] Primary osteoarthr itis of right shoulder Problem Active [facility] Allergies, Adverse Reactions, Alerts Allergy Name Allergy Type Status Severity Reaction(s) Onset Date Inactive Date Treating Clinician Comments Source IODINE DRUG INGREDI Active Swelling 2008-10 00:00: 00 [facility] Iodine Propensi ty to adverse reaction s Active Swelling 2008-10 00:00: 00 [facility] Social History Social Habit Start Date Stop Date Quantity Comments Source History of Tobacco Use [facility] Sex Assigned At [facility] Exposure to SARS-CoV-2 (event) 2022-07-16 00:00:00 2022-07-26 16:50:00 Not sure [facility] Tobacco use and exposure 2022-07-26 00:00:00 2022-07-26 00:00:00 Smokeless tobacco non-user [facility] Smoking Status Start Date Stop Date Source Never Smoker [facility] Current Smoker 2023-12-22 00:00:00 [facility] Tobacco smoking consumption unknown [facility] Medications Ordered Medication Name Filled Medication Name Start Date Stop Date Current Medication? Ordering Clinician Indication Dosage Frequency Signature (SIG) Comments Components Source HYDROcodone -Acetaminop hen 7.5-325 MG HYDROcodone -Acetaminop hen 7.5-325 MG 05-21 00:00: 00 No 1{table t_as_ne eded} QID HYDROcodon e-Acetamin ophen 7.5-325 MG BUPivacaine HCl BUPivacaine HCl 2022-10 00:00: 00 No 5mL [facility] neomycin-po lymyxin-dex amethasone (MAXITROL) 3.5 mg/g-10,000 unit/g-0.1 % ophthalmic ointment 07-28 17:32: 00 07-28 17:34 :36 No PRN, Starting on Tue07/28/22 at 1232, Until Tue07/28/22 at 1234, Routine, Intra-op [facility] dexamethaso ne (DECADRON PHOSPHATE) injection 07-28 17:28: 00 07-28 17:34 :36 No PRN, Starting on Tue07/28/22 at 1228, Until Tue07/28/22 at 1234, Routine, Intra-op [facility] ceFAZolin (ANCEF) injection 07-28 17:28: 00 07-28 17:34 :36 No PRN, Starting on Tue07/28/22 at 1228, Until Tue07/28/22 at 1234, GREGG, Intra-op [facility] carbachoL (MIOSTAT) 0.01 % intraocular injection 07-28 17:28: 00 07-28 17:34 :36 No PRN, Starting on Tue07/28/22 at 1228, Until Tue07/28/22 at 1234, Routine, Intra-op [facility] chondroitin sulf-sod hyaluronate (DUOVISC VISCO ELASTIC) intraocular injection 07-28 17:18: 00 07-28 17:34 :36 No PRN, Starting on Tue07/28/22 at 1218, Until Tue07/28/22 at 1234, Routine, Intra-op [facility] EPINEPHrine 1:1,000 (1 mg/mL) (ADRENALIN) injection 07-28 17:17: 00 07-28 17:34 :36 No PRN, Starting on Tue07/28/22 at 1217, Until Tue07/28/22 at 1234, Routine, Intra-op [facility] balanced salt irrig soln comb1 (BSS PLUS) ophthalmic solution 500 mL bag 07-28 17:17: 00 07-28 17:34 :36 No PRN, Starting on Tue07/28/22 at 1217, Until Tue07/28/22 at 1234, Routine, Intra-op [facility] water for irrigation irrigation solution 07-28 17:10: 00 07-28 17:34 :36 No PRN, Starting on Tue07/28/22 at 1210, Until Tue07/28/22 at 1234, Routine, Intra-op [facility] Hyaluronida se, Human Recomb. (HYLENEX) injection 07-28 17:08: 00 07-28 17:34 :36 No PRN, Starting on Tue07/28/22 at 1208, Until Tue07/28/22 at 1234, Routine, Intra-op [facility] eye block syringe 11 mL 07-28 17:08: 00 07-28 17:34 :36 No PRN, Starting on Tue07/28/22 at 1208, Until Tue07/28/22 at 1234, Intra-op [facility] sodium chloride (NS) injection 07-28 17:00: 00 07-28 17:34 :36 No PRN, Starting on Tue07/28/22 at 1200, Until Tue07/28/22 at 1234, Routine, Intra-op [facility] cyclopent 1%-tropic 1%-phenyl 2.5%-ketor 0.5% (MYDRIATIC #5) ophthalmic solution syringe 0.5 mL 07-28 15:45: 00 07-28 16:03 :00 No .5mL 0.5 mL, Right Eye, ONCE, 1 dose, On Tue07/28/22 at 1045, Routine, DSU Pre-op [facility] lactated ringers IV infusion 1,000 mL 07-28 15:45: 00 07-28 16:03 :00 No 1000mL at 42 mL/hr, 1,000 mL, IV Infusion, ONCE, 1 dose, On Tue07/28/22 at 1045, Routine, DSU Pre-op [facility] GABAPENTIN, BULK, MISC 07-28 13:00: 45 Yes [facility] QUETIAPINE FUMARATE (QUETIAPINE ORAL) 07-28 13:00: 45 Yes Take by mouth. [facility] methocarbam ol (ROBAXIN) 750 mg tablet 07-28 13:00: 45 Yes 750mg Take 750 mg by mouth 4 (four) times daily. [facility] FLUoxetine (PROZAC) 40 mg capsule 07-28 13:00: 45 Yes 40mg Take 40 mg by mouth daily. [facility] omeprazole (PRILOSEC) 40 mg capsule 07-28 13:00: 45 Yes 40mg Take 40 mg by mouth daily. [facility] donepeziL 10 mg tablet 07-16 00:00: 00 Yes 10mg Take 10 mg by mouth in the morning. [facility] ergocalcife rol, vitamin d2, 1,250 mcg (50,000 unit) capsule 07-16 00:00: 00 Yes 1{capsu le} Take 1 capsule by mouth weekly. On Tuesday [facility] dextroamphe tamine-amph etamine 20 mg tablet 07-07 00:00: 00 Yes 1{tbl} Take 1 tablet by mouth in the morning and 1 tablet in the evening. [facility] risperiDONE 0.5 mg tablet 07-07 00:00: 00 Yes .5mg Take 0.5 mg by mouth in the morning and 0.5 mg in the evening. [facility] PARoxetine 30 mg tablet 06-16 00:00: 00 Yes 30mg Take 30 mg by mouth in the morning. [facility] atorvastati n 20 mg tablet 06-11 00:00: 00 Yes 20mg Take 20 mg by mouth in the morning. [facility] propranoloL 40 mg tablet 06-10 00:00: 00 Yes 40mg Take 40 mg by mouth in the morning. [facility] Kenalog (Triamcinol one) Kenalog (Triamcinol one) 07-11 00:00: 00 No 40mg Common [facility] Orthovisc Orthovisc 07-11 00:00: 00 No 15mg [facility] Bupivicaine [place] Bupivicaine [place] 07-11 00:00: 00 No 5mg [facility] proMETHazin e (PHENERGAN) 25 mg tablet 2015-10 00:00: 00 Yes 25mg Take 1 tablet by mouth every 6 (six) hours as needed for N/V unresponsi ve to Ondansetro n. [facility] lisinopril (PRINIVIL,Z ESTRIL) 2.5 mg tablet 2015-10 00:00: 00 Yes 2.5mg Take 1 tablet by mouth daily. [facility] GABAPENTIN, BULK, MISC 2015-10 22:57: 53 Yes [facility] QUETIAPINE FUMARATE (QUETIAPINE ORAL) 2015-10 22:57: 53 Yes Take by mouth. [facility] methocarbam ol (ROBAXIN) 750 mg tablet 2015-10 22:57: 53 Yes 750mg Take 750 mg by mouth 4 (four) times daily. [facility] FLUoxetine (PROZAC) 40 mg capsule 2015-10 22:57: 53 Yes 40mg Take 40 mg by mouth daily. [facility] omeprazole (PRILOSEC) 40 mg capsule 2015-10 22:57: 53 Yes 40mg Take 40 mg by mouth daily. [facility] GABAPENTIN, BULK, MISC 2015-10 17:57: 53 Yes [facility] QUETIAPINE FUMARATE (QUETIAPINE ORAL) 2015-10 17:57: 53 Yes Take by mouth. [facility] methocarbam ol (ROBAXIN) 750 mg tablet 2015-10 17:57: 53 Yes 750mg Take 750 mg by mouth 4 (four) times daily. [facility] FLUoxetine (PROZAC) 40 mg capsule 2015-10 17:57: 53 Yes 40mg Take 40 mg by mouth daily. [facility] omeprazole (PRILOSEC) 40 mg capsule 2015-10 17:57: 53 Yes 40mg Take 40 mg by mouth daily. [facility] ondansetron (ZOFRAN ODT) 8 mg disintegrat ing tablet 2015-10 00:00: 00 Yes 8mg Take 1 tablet by mouth every 8 (eight) hours as needed for Nausea and Vomiting (N/V). [facility] HYDROCODONE -ACETAMINOP HEN 5-325 MG ORAL TAB 02-12 00:00: 00 Yes 1-2 Tab Oral Q6HPRN [facility] IBUPROFEN 600 MG ORAL TAB 02-12 00:00: 00 Yes 1 Tab Oral Q6H [facility] PHENERGAN 25 MG ORAL TAB 02-12 00:00: 00 Yes 1/2 to 1 tab PO q4h PRN nausea/vom itting [facility] CONJ ESTROGENS VAG CREAM 0.625MG/G 02-12 00:00: 00 Yes 1 g Vaginal QHS twice a week x 4 wks [facility] Donepezil HCl 10 MG Donepezil HCl 10 MG No 1{table t_at_be dtime} QD Donepezil HCl 10 MG buPROPion HCl ER (XL) 150 MG buPROPion HCl ER (XL) 150 MG No 1{table t_in_th e_morni ng} QD buPROPion HCl ER (XL) 150 MG QUEtiapine Fumarate 50 MG QUEtiapine Fumarate 50 MG No 1{table t_at_be dtime} QD QUEtiapine Fumarate 50 MG DULoxetine HCl 30 MG DULoxetine HCl 30 MG No 1{capsu le} QD DULoxetine HCl 30 MG Montelukast Sodium 10 MG Montelukast Sodium 10 MG No 1{table t} QD Montelukas t Sodium 10 MG Cetirizine HCl 10 MG Cetirizine HCl 10 MG No 1{table t} QD Cetirizine HCl 10 MG Irbesartan 300 MG Irbesartan 300 MG No 1{table t} QD Irbesartan 300 MG traZODone HCl 100 MG traZODone HCl 100 MG No QD traZODone HCl 100 MG Propranolol HCl 10 MG Propranolol HCl 10 MG No 1{table t} QD Propranolo l HCl 10 MG Atorvastati n Calcium 20 MG Atorvastati n Calcium 20 MG No 1{table t} QD Atorvastat in Calcium 20 MG Breztri Aerosphere 160-9-4.8 MCG/ACT Breztri Aerosphere 160-9-4.8 MCG/ACT No Breztri Aerosphere 160-9-4.8 MCG/ACT Vital Signs Vital Name Observation Time Observation Value Comments S ource height 2024-05-15 10:30:00 62.5 [in_i] Comm on [facility] weight 2024-05-15 10:30:00 167.2 [lb_av] Co mmon [facility] temperature 2024-05-15 10:30:00 97.7 [degF] Com mon [facility] bmi 2024-05-15 10:30:00 30.09 kg/m2 Comm on [facility] blood pressure systolic 2024-05-15 10:30:00 118 mm[Hg] Common [facility] blood pressure diastolic 2024-05-15 10:30:00 74 mm[Hg] [facility] height 2024-02-21 13:00:00 62.5 [in_i] Comm on [facility] weight 2024-02-21 13:00:00 157.6 [lb_av] Co mmon [facility] temperature 2024-02-21 13:00:00 97.8 [degF] Com [facility] bmi 2024-02-21 13:00:00 28.36 kg/m2 Comm on [facility] blood pressure systolic 2024-02-21 13:00:00 124 mm[Hg] Common [facility] blood pressure diastolic 2024-02-21 13:00:00 82 mm[Hg] Common [facility] height 2024-01-10 14:00:00 62.5 [in_i] Comm on [facility] weight 2024-01-10 14:00:00 158 [lb_av] Comm on [facility] temperature 2024-01-10 14:00:00 97.7 [degF] Com [facility] bmi 2024-01-10 14:00:00 28.43 kg/m2 Comm on [facility] blood pressure systolic 2024-01-10 14:00:00 128 mm[Hg] [facility] blood pressure diastolic 2024-01-10 14:00:00 83 mm[Hg] [facility] height 2023-12-22 13:30:00 62.5 [in_i] Comm on [facility] weight 2023-12-22 13:30:00 158 [lb_av] Comm on [facility] temperature 2023-12-22 13:30:00 97.8 [degF] Com [facility] bmi 2023-12-22 13:30:00 28.43 kg/m2 Comm on [facility] blood pressure systolic 2023-12-22 13:30:00 132 mm[Hg] Common [facility] blood pressure diastolic 2023-12-22 13:30:00 84 mm[Hg] [facility] height 2023-09-08 14:30:00 62.5 [in_i] Comm on [facility] weight 2023-09-08 14:30:00 159.6 [lb_av] Co mmon [facility] temperature 2023-09-08 14:30:00 97.9 [degF] Com mon [facility] bmi 2023-09-08 14:30:00 28.72 kg/m2 Comm on [facility] blood pressure systolic 2023-09-08 14:30:00 138 mm[Hg] Common [facility] blood pressure diastolic 2023-09-08 14:30:00 86 mm[Hg] [facility] Systolic blood pressure 2022-07-28 17:51:00 138 mm[Hg] [facility] Diastolic blood pressure 2022-07-28 17:51:00 87 mm[Hg] [facility] Heart rate 2022-07-28 17:51:00 86 /min [facility] Respiratory rate 2022-07-28 17:51:00 23 /min [facility] Oxygen saturation in Arterial blood by Pulse oximetry 2022-07-28 17:51:00 95 /min [facility] Body temperature 2022-07-28 17:35:00 36.22 Vane [facility] Body height 2022-07-27 14:10:00 162.6 cm [facility] Body weight 2022-07-27 14:10:00 71.2 kg [facility] BMI 2022-07-27 14:10:00 26.93 kg/m2 [facility] Systolic blood pressure 2022-07-28 15:49:00 146 mm[Hg] [facility] Diastolic blood pressure 2022-07-28 15:49:00 100 mm[Hg] [place] [facility] Body temperature 2022-07-28 15:47:00 36.72 Vane [facility] Heart rate 2022-07-28 15:45:00 89 /min [facility] Respiratory rate 2022-07-28 15:45:00 20 /min [facility] Oxygen saturation in Arterial blood by Pulse oximetry 2022-07-28 15:45:00 95 /min [facility] Body height 2022-07-27 14:10:00 162.6 cm [facility] Body weight 2022-07-27 14:10:00 71.2 kg [facility] BMI 2022-07-27 14:10:00 26.93 kg/m2 [facility] height 2022-01-28 11:00:00 62.5 [in_i] Comm on [facility] weight 2022-01-28 11:00:00 155 [lb_av] Comm on [facility] temperature 2022-01-28 11:00:00 97.3 [degF] Com mon [facility] bmi 2022-01-28 11:00:00 27.9 kg/m2 Commo n [facility] blood pressure systolic 2022-01-28 11:00:00 118 mm[Hg] Common [facility] blood pressure diastolic 2022-01-28 11:00:00 72 mm[Hg] Common [facility] height 2021-07-16 13:00:00 62.5 [in_i] Comm on [facility] weight 2021-07-16 13:00:00 164 [lb_av] Comm on [facility] bmi 2021-07-16 13:00:00 29.51 kg/m2 Comm on [facility] blood pressure systolic 2021-07-16 13:00:00 144 mm[Hg] Common [facility] blood pressure diastolic 2021-07-16 13:00:00 86 mm[Hg] Common [facility] height 2021-04-16 13:30:00 62.5 [in_i] Comm on [facility] weight 2021-04-16 13:30:00 164 [lb_av] Comm on [facility] temperature 2021-04-16 13:30:00 97.3 [degF] Com mon [facility] bmi 2021-04-16 13:30:00 29.51 kg/m2 Comm on [facility] blood pressure systolic 2021-04-16 13:30:00 124 mm[Hg] Common [facility] blood pressure diastolic 2021-04-16 13:30:00 72 mm[Hg] Common [facility] height 2021-03-12 11:00:00 62.5 [in_i] Comm on [facility] weight 2021-03-12 11:00:00 164.3 [lb_av] Co mmon [facility] bmi 2021-03-12 11:00:00 29.57 kg/m2 Comm on [facility] blood pressure systolic 2021-03-12 11:00:00 124 mm[Hg] Common [facility] blood pressure diastolic 2021-03-12 11:00:00 84 mm[Hg] [facility] height 2021-02-09 10:00:00 62.5 [in_i] Comm on [facility] weight 2021-02-09 10:00:00 167 [lb_av] Comm on [facility] bmi 2021-02-09 10:00:00 30.05 kg/m2 Comm on [facility] blood pressure systolic 2021-02-09 10:00:00 132 mm[Hg] Common [facility] blood pressure diastolic 2021-02-09 10:00:00 82 mm[Hg] [facility] Procedures Procedure Date / Time Performed Performing Clinician Source PHACOEMULSIFICATION OF CATARACT WITH INTRAOCULAR LENS IMPLANT 2022-07-28 16:55:00 Mario Dumont [facility] ASSIGNMENT OF BENEFITS 2022-07-23 17:39:21 Doctor Unassigned, [place] [facility] SARS-COV-2 COVID-19 VACCINE,0.3ML,IM (PFIZER) 2021-10-09 17:11:36 Doctor Unassigned, [place] [facility] ASSIGNMENT OF BENEFITS 2021-02-26 18:05:55 Doctor Unassigned, [place] [facility] Encounters Start Date/Time End Date/Time Encounter Type Admission Type Attending [facility] Facility Care Department Encounter ID Source 2024-05-14 08:52:00 Outpatient [facility] [id number] [facility] 2023-09-08 14:25:00 Outpatient [facility] [id number] [facility] 2023-08-29 14:38:00 Outpatient [facility] [id number] [facility] 2022-01-28 11:30:01 Outpatient [facility] [id number] [facility] 2022-01-11 08:36:01 Outpatient [facility] [id number] [facility] 2021-11-25 13:03:19 Outpatient [facility] [id number] [facility] 2021-11-25 12:59:06 Outpatient [facility] ST[facility] [id number] [facility] 2021-11-25 12:56:04 Outpatient [facility] ST[facility] [id number] [facility] 2021-11-25 12:51:08 Outpatient [facility] ST[facility] [id number] [facility] 2021-11-25 12:46:19 Outpatient [facility] ST[facility] [id number] [facility] 2021-11-25 12:41:06 Outpatient [facility] ST[facility] [id number] [facility] 2021-11-25 12:30:56 Outpatient [facility] ST[facility] [id number] [facility] 2021-11-25 11:50:28 Outpatient [facility] ST[facility] [id number] [facility] 2021-11-25 11:46:33 Outpatient [facility] ST[facility] [id number] [facility] 2021-11-25 11:38:05 Outpatient [facility] ST[facility] [id number] [facility] 2021-11-25 11:36:49 Outpatient [facility] ST[facility] [id number] [facility] 2024-05-18 00:00:00 2024-05-18 00:00:00 (TEL) STLMLC ST[facility]C [id number] [facility] 2024-05-15 00:00:00 2024-05-15 00:00:00 OFFICE VISIT ESTAB PT LEVEL 4 [facility] ST[facility]C [id number] [facility] 2024-03-27 00:00:00 2024-03-27 00:00:00 (TEL) [facility]LMLC ST[facility]C [id number] [facility] 2024-02-21 00:00:00 2024-02-21 00:00:00 OFFICE VISIT ESTAB PT LEVEL 4 [facility] ST[facility] [id number] [facility] 2024-02-21 00:00:00 2024-02-21 00:00:00 (TEL) [facility]LMLC ST[facility]C [id number] [facility] 2024-01-10 00:00:00 2024-01-10 00:00:00 (F/U) Follow Up Visit [facility]MLC ST[facility] [id number] [facility] 2023-12-22 00:00:00 2023-12-22 00:00:00 OFFICE VISIT ESTAB PT LEVEL 4 [facility] [id number] [facility] 2023-12-22 00:00:00 2023-12-22 00:00:00 [facility] [id number] [facility] 2023-09-08 00:00:00 2023-09-08 00:00:00 (F/U) [facility] [id number] [facility] 2022-07-28 10:44:00 2022-07-28 12:59:00 Outpatient R PUR[facility] [id number] [facility] 2022-07-28 10:44:00 2022-07-28 12:59:00 Hospital Encounter Mario Dumont [facility] 1.840.114 350.1.13.10 4.2.7.2.686 [id number] [facility] 2022-07-28 11:17:00 2022-07-28 11:51:00 Surgery Mario Dumont [facility] 1..840.114 350.1.13.10 4.2.7.2.686 [id number] [facility] 2022-07-26 07:30:00 2022-07-26 07:45:00 Laboratory Only Only, Adc Test Mario Dumont [facility] 1..840.114 350.1.13.10 4.2.7.2.686 [id number] [facility] 2022-07-26 07:30:00 2022-07-26 07:30:00 Outpatient R MARIO DUMONT [facility] [id number] [facility] 2022-07-23 11:45:00 2022-07-23 12:00:00 Frickertron Checker Visit Pob, Adc Lab Main [facility] 1..840.114 350.1.13.10 4.2.7.2.686 [id number] [facility] 2022-07-23 11:45:00 2022-07-23 11:45:00 Outpatient MARIO SPIVEY [facility] [id number] [facility] 2022-07-23 00:00:00 2022-07-23 00:00:00 Orders Only Doctor Unassigned, [place] [facility] 1.840.114 350.1.13.10 4.2.7.2.686 [id number] [facility] 2022-01-28 00:00:00 2022-01-28 00:00:00 OFFICE VISIT EST PT LEVEL 3 [facility] [id number] [facility] 2021-10-09 10:30:02 2021-10-09 10:30:12 Imm/Inj Visit Nurse, Ibis Pob Immunizatio Simeon Chance [facility] 1..840.114 350.1.13.10 4.2.7.2.686 [id number] [facility] 2021-10-09 10:30:00 2021-10-09 10:30:12 Outpatient SIMEON COURTNEY [facility] [id number] [facility] 2021-07-16 00:00:00 2021-07-16 00:00:00 OFFICE VISIT ESTAB PT LEVEL 4 [facility] [id number] [facility] 2021-04-16 00:00:00 2021-04-16 00:00:00 OFFICE VISIT EST PT LEVEL 3 [facility] [id number] [facility] 2021-03-18 13:01:39 2021-03-18 13:41:39 Ancillary Visit Edith Marino Craig L [facility] 1..840.114 350.1.13.10 4.2.7.2.686 [id number] [facility] 2021-03-16 13:04:10 2021-03-16 13:44:10 Ancillary Visit Edith Marino Craig L [facility] 1.2.840.114 350.1.13.10 4.2.7.2.686 [id number] [facility] 2021-03-12 00:00:00 2021-03-12 00:00:00 Postop visit [facility] [id number] [facility] 2021-03-11 13:04:56 2021-03-11 13:44:56 Ancillary Visit Cathy Comer Craig L [facility] 1.2.840.114 350.1.13.10 4.2.7.2.686 [id number] [facility] 2021-03-09 13:04:53 2021-03-09 13:44:53 Ancillary Visit Rodrigo Comer Craig L [facility] 1.2.840.114 350.1.13.10 4.2.7.2.686 [id number] [facility] 2021-03-04 13:05:12 2021-03-04 13:45:12 Ancillary Visit Rodrigo Comer Craig L [facility] 1.2.840.114 350.1.13.10 4.2.7.2.686 [id number] [facility] 2021-03-04 13:00:00 2021-03-04 13:00:00 Outpatient THUAN ADEN [facility] [id number] [facility] 2021-03-02 13:04:17 2021-03-02 13:44:17 Ancillary Visit Katy Marie Craig L [facility] 1.2.840.114 350.1.13.10 4.2.7.2.686 [id number] [facility] 2021-02-26 13:07:38 2021-02-26 14:28:00 Ancillary Visit Katy Marie Craig L [facility] [id number] [facility] 2021-02-26 13:00:00 2021-02-26 13:00:00 Outpatient R [facility] [id number] [facility] 2021-02-26 00:00:00 2021-02-26 00:00:00 Orders Only Doctor Unassigned, [place] [facility] [id number] [facility] 2021-02-09 00:00:00 2021-02-09 00:00:00 Postop visit STLMLC ST[facility]C [id number] [facility] 2021-01-20 00:00:00 2021-01-20 00:00:00 Outpatient [facility]C [facility] [id number] [facility] 2021-01-14 00:00:00 2021-01-14 00:00:00 Outpatient [facility]C [facility] [id number] [facility] 2021-01-13 00:00:00 2021-01-13 00:00:00 Outpatient [facility]LMLC [facility]C [id number] [facility] 2021-01-09 00:00:00 2021-01-09 00:00:00 Outpatient STLMLC STL[facility]C [id number] [facility] 2020-12-19 00:00:00 2020-12-19 00:00:00 Outpatient STLMLC STL[facility]C [id number] [facility] 2020-12-19 00:00:00 2020-12-19 00:00:00 Outpatient [facility]LMLC STL[facility]C [id number] [facility] 2020-11-26 00:00:00 2020-11-26 00:00:00 Outpatient STLMLC STL[facility]C [id number] [facility] 2020-11-26 00:00:00 2020-11-26 00:00:00 Outpatient [facility]LMLC STL[facility]C [id number] [facility] 2020-11-07 00:00:00 2020-11-07 00:00:00 Outpatient STLMLC STL[facility]C [id number] [facility] 2020-10-14 00:00:00 2020-10-14 00:00:00 Outpatient STLMLC STL[facility]C [id number] [facility] 2020-08-14 00:00:00 2020-08-14 00:00:00 Outpatient STLMLC STL[facility]C [id number] [facility] 2020-07-31 00:00:00 2020-07-31 00:00:00 Outpatient [facility]LMLC STL[facility]C [id number] [facility] 2020-07-24 00:00:00 2020-07-24 00:00:00 Outpatient STLMLC STL[facility]C [id number] [facility] 2020-07-11 09:30:00 2020-07-11 09:30:00 Outpatient [facility] [id number] [facility] 2020-06-24 15:38:00 2020-06-24 15:38:00 Outpatient [facility] [id number] [facility] 2020-06-16 08:39:00 2020-06-16 08:39:00 [facility] [id number] [facility] 2020-06-10 13:00:00 2020-06-10 13:00:00 Outpatient [facility] [id number] [facility] Results Test Description Test Time Test Comments Results Result Co mments Source CT Shoulder Right Wo Cont CT Shoulder Right Wo Cont
[2024-05-23] MEDS: CEFAZOLIN 1 GM in NA CHLORIDE 0.9% 50 ML IVPB SCH (17:14)
[2024-05-23] MEDS ORDERED: HOME MED 1 EA UNK (Trazodone Hcl [Trazodone Hcl] 100 MG Tablet) PO SCH (21:00)
[2024-05-23] MEDS: FORMOTEROL IH SCH (21:00)
[2024-05-23] MEDS: GLYCOPYR IH SCH (21:00)
[2024-05-23] MEDS ORDERED: HOME MED 1 EA UNK (Quetiapine Fumarate [Seroquel] 50 MG Tablet) PO SCH (21:00)
[2024-05-23] MEDS: PROPRANOLOL HCL 40 MG TAB PO SCH (21:00)
[2024-05-23] MEDS: BUDESONIDE IH SCH (21:00)
[2024-05-23] MEDS: ATORVASTATIN 20 MG TAB PO SCH (21:14)
[2024-05-23] MEDS: TRAZODONE 50 MG TABLET PO SCH (21:14)
[2024-05-23] MEDS: QUETIAPINE 25 MG TAB PO SCH (21:15)
[2024-05-24 05:31] LABS: Hematocrit 36.1 % (36.0-45.0); Hemoglobin 12.1 g/dL (12.0-15.0)
[2024-05-24] MEDS ORDERED: HOME MED 1 EA UNK (Irbesartan [Irbesartan] 300 MG Tablet) PO SCH (09:00)
[2024-05-24] MEDS: ASPIRIN 325 MG TAB PO SCH (09:07)
[2024-05-24] MEDS: VALSARTAN 160 MG TAB PO SCH (09:08)
[2024-05-24] MEDS: CETIRIZINE HCL 5 MG TABLET PO SCH (09:09)
[2024-05-24] MEDS: DULOXETINE 30 MG CAP PO SCH (09:09)
[2024-05-24] MEDS: MONTELUKAST 10 MG TAB PO SCH (09:09)
[2024-05-24] MEDS: BUPROPION HCL XL 150 MG TAB PO SCH (09:09)
[2024-05-24] MEDS: HYDROCODONE/APAP 7.5/325 MG TAB PO PRN (09:12)
--- NOTE | 2024-05-24 09:54 | P.OP ---
Preoperative diagnosis: Right shoulder osteoarthritis Postoperative diagnosis: Same Primary procedure: right total shoulder arthroplasty Anesthesia: General Estimated blood loss: 30 cc Specimen: Right humeral head Findings: see dictation Operative Technique: Indication For Procedure: Paula is a 74-year-old female who presented to my clinic with signs, symptoms and x-ray findings consistent with severe right shoulder osteoarthritis. Patient failed conservative treatment measures including home exercise program as well as corticosteroid injections. Her pain affected her activities of daily living. I discussed with the patient risks and benefits associated with operative and nonoperative treatment. She expressed understanding and elected to proceed with operative treatment. Description Of Procedure: After informed consent was obtained, the patient was identified in the preoperative holding area. The right upper extremity was marked. The patient was then taken back to the PACU and underwent an interscalene block to her right upper extremity performed by Anesthesia. She was then transferred to the operating table in a supine fashion and placed under general endotracheal anesthesia. She was placed in the beach chair position with her extremities well padded. The right upper extremity was then prepped and draped in the usual sterile fashion. A time-out was initiated. The correct patient and procedure were confirmed and identified. The patient did receive preoperative prophylactic antibiotics. Ativan was placed over the right shoulder. Approximately a 12 cm incision was made to the right shoulder using a deltopectoral approach, centered just proximal to the medial aspect of the arm. Dissection was then taken to the fascia. The cephalic vein was identified and wa s marked in the interval. The cephalic vein was gently retracted medially. A Kolbel retractor was then placed, protecting the deltoid as well as pec, retracting the pec medially and the deltoid laterally. It was placed just deep to the coracoid and the conjoined tendon protecting the musculocutaneous nerve. The axillary nerve was also identified and protected throughout the case. The subscapularis was identified. At the base of the subscapularis, 3 blood vessels were tied and cauterized using Bovie electrocautery. Just medial to the lesser tuberosity, the subscapularis was transected. Medial aspect to the tendon was then tagged using #5 Ethibond sutures from superior to inferior. The subscapularis was then gently retracted medially. The capsule was then released off the proximal humerus to the level of the humeral neck near the 6 o'clock position. A large osteophyte of the undersurface of the humeral neck was then removed using an osteotome and rongeurs. A Hohmann retractor was then placed gently behind the humeral head and the humeral head was then dislocated by extending the shoulder as well as externally rotating it. The rotator cuff was found to be intact. Entry reamer was then placed down the proximal humerus in a sequential fashion, a size 9 mm reamer was placed. Once it was placed in a proper depth and there was good overall fit, the cutting guide was then placed on the reamer where 30 degrees of retroversion was marked and the cutting jig was placed over the reamer and pinned into position on the humeral head. The cut was made just superior to the rotator cuff insertion. Once pinned into position and a proper version was marked, a saw was then used to cut the humeral head. The cut humeral head segment was sent to the back table and measured and a size 46 x 18 mm head was selected. The proximal humerus was then broached in 1 mm increments from a size 7 mm broach to a size 9 mm broach with good overall fit. A cap was then placed in the proximal humerus and then gently retracted. Batman and Esdras retractors were then placed and a Hohmann retractor was placed in the superior aspect of the glenoid. Labrum was then excised and there was a capsule release anterior, posteriorly, inferiorly and superiorly for to adequate exposure to the glenoid. Once the glenoid was exposed properly, a pin was placed in the central position. The glenoid surface was then reamed to debride off the cartilage surface to near bleeding bony bed. Central peg was then was then drilled over the central guide pin and the glenoid was prepared. The wound was then irrigated thoroughly with normal saline. A size 2 glenoid was selected. The cement was prepared on the back table and placed within the 3 peripheral pecs and the central peg was right clean given the trabecular metal coating of the glenoid implant. Final glenoid implant was then placed andheld into position until the cement was completely hard. The final size 9 mm mini stem was then placed up to the proximal humerus. After passing sutures along the border using a drill and suture passer for bone to tendon subscapularis repair. It was then irrigated. There was good overall fit. It was then trialed using a using a 46 x 11 mm head. There was good overall fit and range of motion with the selective head. A final 46 x 11 head was then placed and knocked into position. The shoulder was again reduced at full range of motion with good overall stability noted. The subscapularis was then repaired using #5 Ethibond sutures. There was good overall external rotation with maintenance of repair. Next, the retractors were then removed and superficial fascia was approximated using a 0 Vicryl, subcutaneous tissue was approximated using a 2-0 Vicryl, skin was approximated using roc. Sterile dressings were applied. The patient was placed in a shoulder immobilizer, awakened, and transferred to the PACU in stable condition. Complications: None Implants: Biomet Faye 9 mini stem, size 2 glenoid with TM post, 46 x 18 mm head Fluids & blood products: Per anesthesia record Transferred to: Recovery Room Condition: Good
[2024-05-24 18:39] VITALS: BP 110/64; TEMP 97.2; O2SAT 92
[2024-05-24 19:17] VITALS: BMI 28.6
== END 2024-05-24 12:59 | disposition home or self-care (01) ==
LOC: OR 08:24 → 2ND 13:52
PROVIDERS: ADMIT Orthopaedic Surgery Sports Medicine; ATTEND Orthopaedic Surgery Sports Medicine
PROC: 0RRJ0JZ Replacement of Right Shoulder Joint with Synthetic Substitute, Open Approach (ICD-10-PCS; principal; 2024-05-23 10:45)
DX: M19.011 Primary osteoarthritis, right shoulder (principal)
CPT/HCPCS: 93005; 85025; 80048; 36415 ×2; 85610; 88305; 88311; 85730; 85018 ×2; 85014 ×2; 71046; 73020; 97760; 97116; 97161; 94010; 23472; J2704; J1100 ×2; J2710; J2001 ×2; J2250; J3010; J0171; J2405; J7120 ×3; J0690 ×3; 88304; C1776; G0378; G0379

== ENCOUNTER 2025-02-08 06:00 | Day surgery (SDC) | payer OTHER ==
--- NOTE | 2025-02-07 10:58 | RAD REPORT ---
Procedure: Chest Pa And Lat (2 Views) HISTORY: Preop COMPARISON: 2023 FINDINGS: The lungs appear clear of acute infiltrate.. Lungs are moderately hyperaerated. No significant pleural effusion noted. The heart is normal size. IMPRESSION: No acute abnormality is displayed.
[2025-02-07 11:11] LABS: Absolute Basophils 0.1 K/uL (0-0.5); Absolute Eosinophils 0.1 K/uL (0-0.5); Absolute Lymphocytes (CBC) 2.4 K/uL (0.7-4.9); Absolute Monocytes 0.6 K/uL (0.1-1.3); Absolute Neutrophil 6.5 K/uL (1.8-8.0); Basophils % 0.9 % (0-1.3); Hematocrit 41.9 % (36.0-45.0); Hemoglobin 14.3 g/dL (12.0-15.0); Lymphocytes % 24.9 % (15.3-44.8); MCH 31.2 pg (27.0-35.0); MCV 91.6 fL (80-100); MPV 8.8 fL (7.6-11.3); Monocytes % 6.2 % (3.3-12.3); Nucleated Red Blood Cells % 0.1 % (0-0); Platelets 278 thou/uL (152-406); RBC Red Blood Cell Count 4.58 M/uL (3.86-4.86); Red Cell Distribution Width 14.8 % (12.1-15.2)
[2025-02-07 11:19] LABS: PTT, Activated Partial Thromb 26.7 SECONDS (27.2-37.4); Protime INR 1.06
[2025-02-08] MEDS ORDERED: Ringers Lactate 1,000 ML IV ONE (06:21)
[2025-02-08] MEDS ORDERED: LIDOCAINE 1% MPF 5 ML VIAL ONE (06:53)
[2025-02-08] MEDS ORDERED: FENTANYL CITR 100 MCG/2 ML ONE (06:53)
[2025-02-08] MEDS ORDERED: MIDAZOLAM HCL 2 MG/2 ML INJ ONE (06:53)
[2025-02-08] MEDS ORDERED: EPINEPHRINE 1 MG/ML VIAL ONE (06:53)
[2025-02-08] MEDS ORDERED: dexAMETHasone 10 MG/ML VIAL ONE (06:54)
[2025-02-08] MEDS ORDERED: propofoL 200 MG/20 ML VIAL IV ONE (07:36)
[2025-02-08] MEDS ORDERED: LIDOCAINE 2% MPF 5 ML VIAL ONE (07:36)
[2025-02-08] MEDS ORDERED: ONDANSETRON 4 MG/2 ML VIAL ONE (07:36)
[2025-02-08] MEDS ORDERED: EPHEDRINE SULF 50 MG/ML VIAL ONE (08:14)
[2025-02-08] MEDS: CEFAZOLIN SODIUM 1 GM/VIAL ONE (08:28)
[2025-02-08] MEDS: Ringers Lactate 1,000 ML IV ONE (09:00)
[2025-02-08] MEDS: BUPIVACAINE 0.25% PF 30 ML VIAL ONE (09:01)
[2025-02-08] MEDS ORDERED: GLYCOPYRROLATE 0.2 MG/ML SYR ONE (09:03)
--- NOTE | 2025-02-08 10:10 | P.BOP ---
Preoperative diagnosis: Right olecranon fracture Postoperative diagnosis: Same Primary procedure: ORIF right olecranon fracture Clinical Manager: NONE,NONE Estimated blood loss: 5 cc Specimen: None Findings: See dictation Anesthesia: General Complications: None Implants: Acumed olecranon locking plate Fluids & blood products: Per anesthesia record Transferred to: Recovery Room Condition: Good
--- NOTE | 2025-02-08 10:15 | P.OP ---
Preoperative diagnosis: Right olecranon fracture Postoperative diagnosis: Same Primary procedure: ORIF right olecranon fracture Anesthesia: General Estimated blood loss: 5 cc Specimen: None Findings: See dictation Operative Technique: Indication For Procedure: Paula is a 74-year-old female who presented to my clinic with signs and symptoms. X-ray findings consistent with a right displaced olecranon fracture after a fall. Given the displaced fracture pattern, I discussed with the patient and her family at length risks and benefits associated with operative and nonoperative treatment. She expressed understanding and elected to proceed with operative treatment. Description Of Procedure: After informed consent was obtained, the patient was identified in the preoperative holding area. The right upper extremity was marked. The patient was brought to the PACU, where she underwent an interscalene block and brought to the operating room, transferred to the operating table in supine fashion, placed under general anesthesia. She was placed in the left lateral decubitus position with her extremities well padded. The right upper extremity was then prepped and draped in usual sterile fashion. A time-out was initiated. The correct patient and procedure were confirmed and identified. The patient did receive preoperative prophylactic antibiotics. The right upper extremity was exsanguinated and the tourniquet was inflated to 250 mmHg. Approximately, a 10 cm longitudinal incision was made centered over the olecranon. Dissection was then taken down to the triceps tendon and olecranon, and the fracture was identified. The fracture site was irrigated and curetted. Fracture was then reduced using a pointed reduction clamp. Reduction was confirmed using fluoroscopy. A 4-hole AcuMed olecranon locking plate was then placed in position. Again, x-rays were taken to confirm proper placement of the hardware as well as maintenance of reduction. Once this was completed, 2 locking screws were placed within the proximal segment in unicortical fashion, followed by a single cortical shaft screw in compression mode to compress the fracture. Once this was completed, a long home-run locking screw was placed within the proximal fragment, into the distal fragment, followed by 2 cortical screws within the shaft. Final x-rays were taken to ensure maintenance of reduction, and overall good placement of the hardware was confirmed. The elbow was ranged. There was no crepitus noted. Overall good reduction of the fracture with no intra-articular hardware. The wound was then irrigated thoroughly with normal saline. The deep tissue was approximated using 0 Vicryl. Subcutaneous tissue was approximated using a 2-0 Vicryl. Skin was approximated using 3-0 nylon in horizontal mattress fashion. Sterile dressings were applied. The patient was placed in a posterior splint, awakened, and transferred to PACU in stable condition. The patient to be nonweightbearing to her right upper extremity. Postoperative Plan: The patient will follow up in 2 weeks for wound check. I will slowly allow her to begin working on range of motion exercises at 3 weeks postop. Complications: None Implants: Acumed olecranon locking plate Fluids & blood products: Per anesthesia record Transferred to: Recovery Room Condition: Good
[2025-02-08 11:00] VITALS: BP 113/75; TEMP 97.6; O2SAT 99
--- NOTE | 2025-02-08 11:10 | RAD REPORT ---
EXAMINATION: XR Elbow Right 2 View CLINICAL INDICATION: Female, 74 years old. s/p ORIF Right Olecranon FX RIGHT TECHNIQUE: 3 view radiographs of the right elbow were obtained. COMPARISON: No prior exam. FINDINGS: Fixation hardware along the proximal ulna to the level of the olecranon process in satisfac tory alignment, with no evidence of hardware complications. Posterior splint in place. Soft tissue gas around the fixation.. Mild anterior joint effusion. Moderate to advanced elbow joint degenerative changes most notably along the ulnotrochlear articulation. No suspicious focal bone lesion. IMPRESSION: Expected findings following proximal ulna internal fixation, with satisfactory alignment. Moderate to advanced elbow joint degenerative changes.
--- NOTE | 2025-02-08 14:19 | EKG ---
Test Date: 2025-02-07 Test Time: 10:11:46 Control Supervisor: GOLDEN MEASUREMENT RESULTS: Intervals: Rate: 78 ID: [id number] QRSD: 80 QT: 398 QTc: 453 Mobile: P: 50 ID: [id number] QRS: 12 T: 41 INTERPRETIVE STATEMENTS: Normal sinus rhythm Normal ECG Compared to ECG 05/18/2024 09:33:40 No significant changes Electronically Signed On 02-08-25 14:13:48 CDT by Wisam Vega
--- NOTE | 2025-02-11 19:24 | RAD REPORT ---
EXAM: Fluoroscopy use, Elbow Right 2 View HISTORY: ORIF RT ELBOW COMPARISON: None FINDINGS: Multiple images were sent to PACS, during a fluoroscopically guided ORIF RT ELBOW. No radiologist was involved in protocoling or performance of the study, and no radiol ogist was present for the duration of the procedure. No interpretation of the saved images will be provided. Total fluoroscopy time: 0.3 minutes. IMPRESSION: Documentation of fluoroscopy use as above.
== END 2025-02-08 11:30 | disposition home or self-care (01) ==
LOC: OR 06:00
PROVIDERS: ATTEND Orthopaedic Surgery Sports Medicine
PROC: 0PSK04Z Reposition Right Ulna with Internal Fixation Device, Open Approach (ICD-10-PCS; principal; 2025-02-08 08:00)
DX: S52.021A Displaced fracture of olecranon process without intraarticular extension of right ulna, initial encounter for closed fracture (principal); E78.00 Pure hypercholesterolemia, unspecified; I10 Essential (primary) hypertension; J44.9 Chronic obstructive pulmonary disease, unspecified; F41.9 Anxiety disorder, unspecified; F90.9 Attention-deficit hyperactivity disorder, unspecified type
CPT/HCPCS: 93005; 85025; 80048; 36415; 85610; 85730; 71046; 73070 ×2; 24685; J2704; J2003 ×2; J2250; J3010; J1100; J0171; J2405; J7120 ×2; J0690; C1713

== ENCOUNTER 2025-02-27 06:01 | Day surgery (SDC) | payer OTHER ==
[2025-02-27] MEDS ORDERED: BUPIVACAINE 0.5% PF 10 ML VIAL ONE (06:19)
[2025-02-27] MEDS ORDERED: LIDOCAINE 1% MPF 5 ML VIAL ONE (06:19)
[2025-02-27] MEDS ORDERED: dexAMETHasone 10 MG/ML VIAL ONE ×2 (06:20→07:50)
[2025-02-27] MEDS ORDERED: EPINEPHRINE 1 MG/ML VIAL ONE (06:20)
[2025-02-27] MEDS ORDERED: MIDAZOLAM HCL 2 MG/2 ML INJ ONE (06:22)
[2025-02-27] MEDS ORDERED: FENTANYL CITR 100 MCG/2 ML ONE (06:22)
[2025-02-27] MEDS: Ringers Lactate 1,000 ML IV ONE ×2 (06:55→10:00)
[2025-02-27] MEDS ORDERED: BUPIVACAINE 0.25% PF 30 ML VIAL ONE (07:28)
[2025-02-27] MEDS ORDERED: LIDOCAINE 2% MPF 5 ML VIAL ONE (07:50)
[2025-02-27] MEDS ORDERED: ONDANSETRON 4 MG/2 ML VIAL ONE (07:50)
[2025-02-27] MEDS ORDERED: propofoL 200 MG/20 ML VIAL IV ONE (07:50)
[2025-02-27] MEDS ORDERED: KETOROLAC 30 MG/ML INJ ONE (07:50)
[2025-02-27] MEDS: CEFAZOLIN SODIUM 1 GM/VIAL ONE (08:00)
--- NOTE | 2025-02-27 09:50 | RAD REPORT ---
EXAM: Fluoroscopy use, Elbow Right 2 View HISTORY: ORIF RT OLECRANON REVISION COMPARISON: None FINDINGS: A total of 13 images were sent to PACS, during a fluoroscopically guided olecranon hardware removal. No radiologist was involved in protocoling or performance of the study, and no radiologist was present for the duration of the procedure. No interpretation of the saved images will be provided. Total fluoroscopy time: 0.3 minutes. IMPRESSION: Documentation of fluoroscopy use as above.
--- NOTE | 2025-02-27 10:34 | P.BOP ---
Preoperative diagnosis: Failure of right olecranon ORIF Postoperative diagnosis: Same Primary procedure: Excision of proximal olecranon fragment with triceps repair Secondary procedure: Removal of hardware right olecranon Signal Intelligence/Electronic Warfare: NONE,NONE Estimated blood loss: 10 cc Specimen: None Findings: See dictation Anesthesia: General Complications: None Fluids & blood products: Per anesthesia record Transferred to: Recovery Room Condition: Good
--- NOTE | 2025-02-27 10:40 | P.OP ---
Preoperative diagnosis: Failed ORIF of right olecranon fracture Postoperative diagnosis: Same Primary procedure: Excision of proximal olecranon fragment with triceps repair Secondary procedure: Removal of hardware right olecranon Anesthesia: General Estimated blood loss: 10 cc Specimen: None Findings: See dictation Operative Technique: Indication For Procedure: Paula is a 74-year-old female who presented to my clinic with signs and symptoms. X-ray findings consistent with a right displaced olecranon fracture after a fall. Patient had undergone ORIF of a right olecranon fracture 2 weeks ago and at follow-up it was noted that the proximal fragment had broken and displaced. Given the failure of repair I discussed the patient and her family risks and benefits associated with operative and nonoperative treatment I discussed revision ORIF versus excision of the proximal fragment and direct triceps repair. She expressed understanding and elected to proceed with operative treatment. Description Of Procedure: After informed consent was obtained, the patient was identified in the preoperative holding area. The right upper extremity was marked. The patient was brought to the PACU, where she underwent an interscalene block and brought to the operating room, transferred to the operating table in supine fashion, placed under general anesthesia. She was placed in the left lateral decubitus position with her extremities well padded. The right upper extremity was then prepped and draped in usual sterile fashion. A time-out was initiated. The correct patient and procedure were confirmed and identified. The patient did receive preoperative prophylactic antibiotics. The right upper extremity was exsanguinated and the tourniquet was inflated to 250 mmHg. Approximately, the prior healed incision was opened and extended proximally for exposure to the triceps tendon. The olecranon hardware was then removed and the plate was removed. X-rays were taken and sure no retention of any hardware. This was confirmed. The proximal fragment was dissected and it was noted to be in over 4 fragments. Given the significantly osteoporotic bone, I decided to proceed with excision of the fragment and direct triceps repair. The fragment was carefully dissected using a 15 blade and excised. The triceps tendon was then whipstitched using two #2 FiberWire sutures. In Krakw fashion there were 4 sutures to suture ends at the distal portion of the triceps. 3 drill holes were then placed in a retrograde fashion, and out the proximal aspect of the olecranon at the fracture site. Using a suture passer the 4 suture limbs were then brought out through the bone tunnels and tied. There is overall good reduction of the triceps onto the proximal olecranon. The elbow was ranged and was no significant gapping up to 90 degrees. The wound was then irrigated thoroughly with normal saline the repair was reinforced using a #5 Ethibond. Deep tissue was approximate using a number 1 Vicryl. Subcutaneous tissue was approximated using a 2-0 Vicryl. Skin was approximated using 3-0 nylon in horizontal mattress fashion. Sterile dressings were applied. The patient was placed in a posterior splint, awakened, and transferred to PACU in stable condition. The patient to be nonweightbearing to her right upper extremity. Postoperative Plan: The patient will follow up in 2 weeks for wound check and suture removal. I will slowly allow her to begin working on range of motion exercises at 3 weeks postop. Complications: None Fluids & blood products: Per anesthesia record Transferred to: Recovery Room Condition: Good
[2025-02-27 10:56] VITALS: O2SAT 95
[2025-02-27 11:51] VITALS: BP 113/61; TEMP 97
[2025-02-27] MEDS ORDERED: ROCURONIUM 50 MG/5 ML VIAL IV ONE (12:12)
== END 2025-02-27 11:50 | disposition home or self-care (01) ==
LOC: OR 06:01
PROVIDERS: ATTEND Orthopaedic Surgery Sports Medicine
PROC: 0LQ30ZZ Repair Right Upper Arm Tendon, Open Approach (ICD-10-PCS; 2025-02-27)
PROC: 0PBK0ZZ Excision of Right Ulna, Open Approach (ICD-10-PCS; 2025-02-27)
PROC: 0XP60YZ Removal of Other Device from Right Upper Extremity, Open Approach (ICD-10-PCS; principal; 2025-02-27 08:00)
DX: T84.9XXA Unspecified complication of internal orthopedic prosthetic device, implant and graft, initial encounter (principal); S52.021A Displaced fracture of olecranon process without intraarticular extension of right ulna, initial encounter for closed fracture; M25.521 Pain in right elbow; I10 Essential (primary) hypertension; J44.9 Chronic obstructive pulmonary disease, unspecified; F41.9 Anxiety disorder, unspecified; E78.00 Pure hypercholesterolemia, unspecified; F90.9 Attention-deficit hyperactivity disorder, unspecified type
CPT/HCPCS: 20680; 73070; 24341; 24147; J2704; J2003 ×2; J2250; J3010; J1100 ×2; J0171; J2405; J7120 ×2; J0690